=== PATIENT | female | born 1980 | race Caucasian/White ===

== ENCOUNTER 2016-11-23 08:17 | Observation (INO) | payer MEDICARE ==
[2016-11-23] MEDS ORDERED: PROMETHAZINE HCL 25 MG/ML VIAL IV ONE (09:15)
[2016-11-23] MEDS ORDERED: 0.9 % SODIUM CHLORIDE 1,000 ML BAG IV ONE (09:15)
[2016-11-23 09:39] LABS: BASO % 0.1 % (0-6); HEMATOCRIT 38.6 % (35.0-47.0); HEMOGLOBIN 12.6 gm/dl (11.6-16.0); LYMPH % 14.4 % (16-45); MEAN CELL VOLUME 89.6 fl (81-97); MEAN CORPUSCULAR HEMOGLOBIN 29.2 pg (27-33); MEAN CORPUSCULAR HGB CONC 32.6 g/dl (32-36); MEAN PLATELET VOLUME 10.8 fl (7.4-10.4); MONO % 7.5 % (0-9); PLATELET COUNT 353 K/uL (130-400); RED BLOOD COUNT 4.31 M/uL (3.80-5.40); RED CELL DISTRIBUTION WIDTH 13.7 % (11.5-14.5); WHITE BLOOD COUNT W/O DIFF 14.7 K/uL (4.2-12.2)
[2016-11-23 09:51] LABS: ALB/GLOB RATIO 1.4 (1.1-1.8); ALKALINE PHOSPHATASE 105 U/L (38-126); ALT/SGPT 31 U/L (9-52); AMYLASE 41 U/L (30-110); ANION GAP 9.7 (7-16); AST/SGOT 15 U/L (14-36); BILIRUBIN,TOTAL 0.17 mg/dL (0.2-1.3); BLOOD UREA NITROGEN 9 mg/dL (7-17); CARBON DIOXIDE 24.3 mmol/L (22-30); CREATININE 0.8 mg/dL (0.52-1.04); EST GLOMERULAR FILTRATION RATE > 60 ml/min; GLUCOSE,RANDOM 151 mg/dL (70-110); LIPASE 65 U/L (23-300); TOTAL PROTEIN 6.8 gm/dL (6.3-8.2)
[2016-11-23] MEDS ORDERED: LORAZEPAM 2 MG/ML VIAL IV ONE (09:58)
[2016-11-23] MEDS ORDERED: PROMETHAZINE HCL 25 MG/ML VIAL IM ONE (10:15)
[2016-11-23 11:07] LABS: URINE APPEARANCE CLEAR; URINE BILIRUBIN NEGATIVE (NEGATIVE); URINE BLOOD NEGATIVE (NEGATIVE); URINE COLOR YELLOW; URINE KETONE NEGATIVE (NEGATIVE); URINE LEUKOCYTE ESTERASE NEGATIVE (NEGATIVE); URINE NITRITE NEGATIVE (NEGATIVE); URINE PROTEIN NEGATIVE (NEGATIVE); URINE UROBILINOGEN 0.2 E.U./dL (0.20 - 1.00)
[2016-11-23 11:09] LABS: HCG,QUALITATIVE URINE NEGATIVE (NEGATIVE)
--- NOTE | 2016-11-23 11:55 | Emergency Department Record ---
History of Present Illness - General Chief complaint: Vomiting Stated complaint: VOMITING Time Seen by Provider: 11/23/16 09:07 Source: Patient Mode of Arrival: Ambulatory Limitations: No limitations - History of Present Illness Initial comments: pt states she has been vomiting every 5 minutes since during the night. pt was at [facility] yesterday for a migraine and was at [facility] within the last 2 months. she has been diagnosed with cyclical vomiting. she has taken 12mg. of zofran in 8hrs. she is out of phenergan. pt also states she has been vomiting brown though her stomach has nothing in it. she is concerned that she might have blood in her stomach. MD complaint: Nausea, Vomiting Onset/Timin -: Hour(s) Description of Vomiting: Bilious Location: RUQ, RLQ, Diffuse Radiation: None Severity: Moderate Severity scale (1-10): 7 Quality: Cramping, Sharp Consistency: Constant Improves with: None Worsens with: Vomiting Context: Other Associated Symptoms: Loss of appetite, Nausea/vomiting - Related Data Home Medications Medication Instructions Recorded Confirmed Last Taken Duloxetine HCl [Cymbalta] 90 mg PO DAILY 07/22/14 11/23/16 10/13/16 Risperidone [Risperdal M-Tab] 2 mg PO QHS 07/13/16 11/23/16 10/12/16 Pantoprazole Sodium [Protonix] 40 mg PO BID tab.dr 09/07/16 11/23/16 10/13/16 Bupropion HCl [Wellbutrin Xl] 150 mg PO DAILY tab 11/04/16 11/23/16 Unknown Clorazepate Dipotassium [Tranxene 7.5 mg PO TID tab 11/04/16 11/23/16 Unknown T-Tab] Promethazine HCl [Phenergan] 25 mg PO Q6H tab 11/17/16 11/23/16 Unknown Amitriptyline HCl [Amitriptyline 10 mg PO DAILY 11/23/16 11/23/16 Unknown HCl] Allergies Allergy/AdvReac Type Severity Reaction Status Date / Time Iodinated Contrast Media - Allergy Intermediate ANAPHYLAXIS Verified 11/04/16 21 :44 Oral and ketorolac tromethamine Allergy Intermediate ALTERED Verified 11/04/16 21:44 [From Toradol] MENTAL STATUS lurasidone HCl [From Latuda] Allergy Intermediate RASH Verified 11/04/16 21:44 Penicillins Allergy Intermediate RASH Verified 11/04/16 21:44 shellfish derived Allergy Intermediate VOMITING Verified 11/04/16 21:44 tramadol HCl [From Ultram] Allergy Intermediate BEHAVIORAL Verified 11/04/16 21: 44 CHANGES ciprofloxacin [From Cipro] AdvReac Intermediate VOMITING Verified 11/04/16 21:44 ciprofloxacin HCl AdvReac Intermediate VOMITING Verified 11/04/16 21:44 [From Cipro] erythromycin base AdvReac Intermediate ABDOMINAL Verified 11/04/16 21:44 [Erythromycin Base] PAIN haloperidol [From Haldol] AdvReac restless, Verified 11/04/16 21:44 anxious haloperidol lactate AdvReac restless, Verified 11/04/16 21:44 [From Haldol] anxious metoclopramide HCl AdvReac VOMITING Verified 11/04/16 21:44 [From Reglan] sumatriptan [From Imitrex] AdvReac ANAPHYLAXIS Verified 11/04/16 21:44 sumatriptan succinate AdvReac ANAPHYLAXIS Verified 11/04/16 21:44 [From Imitrex] Travel Screening - Travel/Exposure Within Last 30 Days Have you traveled within the last 30 days?: No Review of Systems Reviewed: No additional complaints except as noted below Constitutional: Reports: As per HPI. Denies: Chills, Fever, Malaise, Night sweats, Weakness, Weight change Eyes: Reports: As per HPI. Denies: Eye discharge, Eye pain, Photophobia, Vision change ENT: Reports: As per HPI. Denies: Congestion, Dental pain, Ear pain, Epistaxis , Hearing loss, Throat pain Respiratory: Reports: As per HPI. Denies: Cough, Dyspnea, Hemoptysis, Stridor, Wheezes Cardiovascular: Reports: As per HPI. Denies: Arrhythmia, Chest pain, Dyspnea on exertion, Edema, Murmurs, Orthopnea, Palpitations, Paroxysmal nocturnal dyspnea, Rheumatic Fever, Syncope Endocrine: Reports: As per HPI. Denies: Fatigue, Heat or cold intolerance, Polydipsia, Polyuria Gastrointestinal: Reports: As per HPI. Denies: Abdominal pain, Constipation, Diarrhea, Hematemesis, Hematochezia, Melena, Nausea, Vomiting Genitourinary: Reports: As per HPI. Denies: Abnormal menses, Discharge, Dyspareunia, Dysuria, Frequency, Hematuria, Incontinence, Retention, Urgency Musculoskeletal: Reports: As per HPI. Denies: Arthralgia, Back pain, Gout, Joint swelling, Myalgia, Neck pain Skin: Reports: As per HPI. Denies: Bruising, Change in color, Change in hair/ nails, Lesions, Pruritus, Rash Neurological: Reports: As per HPI. Denies: Abnormal gait, Confusion, Headache, Numbness, Paresthesias, Seizure, Tingling, Tremors, Vertigo, Weakness Psychiatric: Reports: As per HPI. Denies: Anxiety, Auditory hallucinations, Depression, Homicidal thoughts, Suicidal thoughts, Visual hallucinations Hematological/Lymphatic: Reports: As per HPI. Denies: Anemia, Blood Clots, Easy bleeding, Easy bruising, Swollen glands Past Medical History - SOCIAL HISTORY Smoking Status: Current every day smoker Alcohol Use: None Drug Use: None - RESPIRATORY Hx Respiratory Disorders: Yes Hx Bronchitis: Yes Hx Pneumonia: Yes - CARDIOVASCULAR Hx Cardio Disorders: Yes Hx Abnormal EKG: Yes (atrial tachy) - NEURO Hx Neuro Disorders: Yes Hx Headaches: Yes Hx Seizures: Yes (last one 2012) - GI Hx GI Disorders: Yes Hx Abdominal Pain: Yes Hx Hiatal Hernia: Yes Hx Nausea/Vomiting: Yes Hx Wt Loss/Wt Gain: Yes (25 lb over 2 wks 2015) - Hx Genitourinary Disorders: Yes Hx Kidney Stones: Yes Hx UTI: Yes - ENDOCRINE Hx Endocrine Disorders: No Hx Diabetes: No Hx Thyroid Disease: No - MUSCULOSKELETAL Hx Musculoskeletal Disorders: Yes Comment:: osteoarthritis; ankylosing spondylitis - PSYCH Hx Psych Problems: Yes Hx Anxiety: Yes Hx Depression: Yes Comment:: ECT therapy - HEMATOLOGY/ONCOLOGY Hx Hematology/Oncology Disorders: No Family Medical History Any Significant Family History?: Yes Family Hx Comment (NOT TO BE USED IN PLACE OF ITEMS BELOW): Parkinson's- grandparent , Mental illness with father, Hx Cancer: Grandparents Hx Diabetes: Grandparents Hx Heart Disease: Grandparents Physical Exam - General General Appearance: Alert, Oriented x3, Cooperative, Mild distress - Head Head exam: Normal inspection - Eye Eye exam: Normal appearance, PERRL, EOMI Pupils: Normal accommodation - ENT ENT exam: Normal exam, Mucous membranes moist, Normal external ear exam, Normal orophraynx, TM's normal bilaterally Ear exam: Normal external inspection. negative: External canal tenderness Nasal Exam: Normal inspection. negative: Discharge, Sinus tenderness Mouth exam: Normal external inspection, Tongue normal Teeth exam: Normal inspection. negative: Dental caries Throat exam: Normal inspection. negative: Tonsillar erythema, Tonsillar exudate - Neck Neck exam: Normal inspection, Full ROM. negative: Tenderness - Respiratory Respiratory exam: Normal lung sounds bilaterally. negative: Respiratory distress - Cardiovascular Cardiovascular Exam: Regular rate, Normal rhythm, Normal heart sounds - GI/Abdominal GI/Abdominal exam: Soft, Normal bowel sounds. negative: Tenderness - Rectal Rectal exam: Deferred - exam: Deferred - Extremities Extremities exam: Normal inspection, Full ROM, Normal capillary refill. negative: Tenderness - Back Back exam: Reports: Normal inspection, Full ROM. Denies: Muscle spasm, Rash noted, Tenderness - Neurological Neurological exam: Alert, CN II-XII intact, Normal gait, Oriented X3 - Psychiatric Psychiatric exam: Normal affect, Normal mood - Skin Skin exam: Dry, Intact, Normal color, Warm Course Vital Signs 11/23/16 08:22 Temperature 98.1 F Pulse Rate 104 H Respiratory 18 Rate Blood Pressure 125/77 Pulse Ox 98 - Reevaluation(s) Reevaluation #1: 11/23/16 11:58 ng tube was d/w pt. she asked for it to be done. she then refused during process. she then asked for it to be done again and then as nurse was attempting the 2nd time she refused again. pt states she cant go home as she will be back here again vomiting. Medical Decision Making - Lab Data Result diagrams: 11/23/16 08:40 11/23/16 08:40 Lab Results 11/23/16 11/23/16 11/23/16 Range/Units 08:40 08:40 11:00 WBC 14.7 H (4.2-12.2) K/uL RBC 4.31 (3.80-5.40) M/uL Hgb 12.6 (11.6-16.0) gm/dl Hct 38.6 (35.0-47.0) % MCV 89.6 (81-97) fl MCH 29.2 (27-33) pg MCHC 32.6 (32-36) g/dl RDW 13.7 (11.5-14.5) % Plt Count 353 (130-400) K/uL MPV 10.8 H (7.4-10.4) fl Gran % 78.0 (47-80) % Lymphocytes % 14.4 L (16-45) % Monocytes % 7.5 (0-9) % Eosinophils % 0.0 (0-6) % Basophils % 0.1 (0-6) % Sodium 141 (136-145) mmol/L Potassium 3.9 (3.5-5.1) mmol/L Chloride 107 (98-107) mmol/L Carbon Dioxide 24.3 (22-30) mmol/L Anion Gap 9.7 (7-16) BUN 9 (7-17) mg/dL Creatinine 0.8 (0.52-1.04) mg/dL Estimated GFR > 60 ml/min Random Glucose 151 H (70-110) mg/dL Calcium 9.0 (8.5-10.1) mg/dL Total Bilirubin 0.17 L (0.2-1.3) mg/dL AST 15 (14-36) U/L ALT 31 (9-52) U/L Alkaline Phosphatase 105 (38-126) U/L Total Protein 6.8 (6.3-8.2) gm/dL Albumin 4.0 (3.5-5.0) gm/dL Globulin 2.8 (1.4-4.8) gm/dL Albumin/Globulin Ratio 1.4 (1.1-1.8) Amylase 41 (30-110) U/L Lipase 65 (23-300) U/L Urine Color Yellow Urine Appearance Clear Urine pH 7.0 (5.0-8.0) Ur Specific [place] 1.020 (1.002-1.030) Urine Protein Negative (NEGATIVE) Urine Glucose (UA) 250 mg/dl H (NEGATIVE) Urine Ketones Negative (NEGATIVE) Urine Blood Negative (NEGATIVE) Urine Nitrite Negative (NEGATIVE) Urine Bilirubin Negative (NEGATIVE) Urine Urobilinogen 0.2 (0.20 - 1.00) E.U./dL Ur Leukocyte Esterase Negative (NEGATIVE) Urine HCG, Qual Negative (NEGATIVE) Disposition Disposition: Admit Clinical Impression: Nausea & vomiting Qualifiers: Vomiting type: cyclical vomiting Vomiting Intractability: intractable Qualified Code(s): G43.A1 - Cyclical vomiting, intractable Cyclical vomiting Qualifiers: Vomiting Intractability: intractable Nausea presence: with nausea Qualified Code(s): G43.A1 - Cyclical vomiting, intractable Disposition: Still a Patient at [facility] Decision to Admit: Admit from ER Decision to Admit Date: 11/23/16 Decision to Admit Time: 12:02 Forms: Patient Portal Access
[2016-11-23] MEDS ORDERED: PROMETHAZINE HCL 25 MG/ML VIAL IM PRN (12:37)
[2016-11-23] MEDS ORDERED: TEMAZEPAM 15 MG CAPSULE PO PRN (12:37)
[2016-11-23] MEDS ORDERED: DICYCLOMINE HCL 10 MG/ML AMPUL IM ONE (14:17)
[2016-11-23] MEDS: DULOXETINE HCL 30 MG CAPSULE.DR PO SCH (14:47)
[2016-11-23] MEDS: BUPROPION HCL 150 MG TAB.SR.12H PO SCH (14:48)
[2016-11-23] MEDS: AMITRIPTYLINE 10 MG TAB PO SCH ×2 (14:48→21:39)
[2016-11-23] MEDS: CLORAZEPATE DIPOTASSIUM 7.5 MG PO SCH ×3 (14:49→21:40)
[2016-11-23] MEDS: PANTOPRAZOLE SODIUM 40 MG TABLET PO SCH ×2 (14:50→21:40)
[2016-11-23] MEDS: NICOTINE 21 MG/24 HOUR PATCH TD SCH (15:01)
[2016-11-23] MEDS: ONDANSETRON HCL IV 4 MG/2 ML VIAL IVP PRN (17:19)
[2016-11-23] MEDS: 0.9 % SODIUM CHLORIDE 1000ML 1,000 ML IV PRN (18:02)
[2016-11-23] MEDS ORDERED: PROMETHAZINE HCL 25 MG SUPP RC ONE (18:52)
[2016-11-23] MEDS: HYDROMORPHONE HCL 1 MG/ML CPJ IVP PRN (20:17)
[2016-11-23] MEDS ORDERED: AMITRIPTYLINE 25 MG TABLET PO SCH (22:00)
[2016-11-23] MEDS ORDERED: RISPERIDONE 1 MG TABLET PO SCH (22:00)
[2016-11-23] MEDS ORDERED: DIPHENHYDRAMINE HCL 25 MG CAPSULE PO SCH (22:00)
[2016-11-24] MEDS: 0.9 % SODIUM CHLORIDE 1000ML 1,000 ML IV PRN ×3 (00:03→08:54)
[2016-11-24] MEDS: HYDROMORPHONE HCL 1 MG/ML CPJ IVP PRN ×4 (00:04→13:00)
[2016-11-24] MEDS: ONDANSETRON HCL IV 4 MG/2 ML VIAL IVP PRN ×2 (02:53→11:54)
--- NOTE | 2016-11-24 06:33 | History & Physical ---
History of Present Illness - Date of Service Date of Service for History & Physical: 11/24/16 - History of Present Illness Admitting Diagnosis: intractable nausea and vomiting History of Present Illness: 36yo female with CC of nausea and vomiting. She has a history of cyclical vomiting being followed by [facility], major depression being treated with ECT, anxiety, migraines, osteoarthritis. Patient has long history of recurrent, cyclical vomiting being followed by [facility]. She presented to the ED yesterday with nausea and frequent vomiting of brown emesis. She reports not being able to keep anything down including water so she decided to come to the ED after trying 12mg of zofran at home . While in the ED, patient refused to have NG tube placed twice. She had recently had CT abdomen at [facility] which was negative for acute changes. WBC count was slightly elevated, but she had received steroids in [facility] ED the day prior. Rest of her labs were unremarkable including AST/ALT, lipase, and TSH. Patient was given phenergan with mild improvement in nausea. She did not have any further episodes of emesis while in the ED but was admitted for intractable vomiting. 11/24/16- Patient states she continues to feel nauseous. She reports vomiting up her breakfast and has not been able to tolerate her water. She says the phenergan isn't working very well. She reports having compazine in the past and reporting that worked well. She has had her N/V worked up extensively with GI and no follows with the [facility]. PCP: Srinivas Travel Screening - Travel/Exposure Within Last 30 Days Have you traveled within the last 30 days?: No - Travel/Exposure Within Last Year Have you traveled outside the [place] in the last year?: No - Additonal Travel Details Have you been exposed to anyone with a communicable illness?: No - Travel Symptoms Symptom Screening: Headache, Weakness, Fatigue, Vomiting, Stomach Pain Review of Systems Constitutional: Denies: Chills, Fever, Malaise, Night sweats, Weakness, Weight change Eyes: Denies: Eye discharge, Eye pain, Photophobia, Vision change ENT: Denies: Congestion, Dental pain, Ear pain, Epistaxis, Hearing loss, Throat pain Respiratory: Denies: Cough, Dyspnea, Hemoptysis, Stridor, Wheezes Cardiovascular: Denies: Arrhythmia, Chest pain, Dyspnea on exertion, Edema, Murmurs, Orthopnea, Palpitations, Paroxysmal nocturnal dyspnea, Rheumatic Fever , Syncope Endocrine: Denies: Fatigue, Heat or cold intolerance, Polydipsia, Polyuria Gastrointestinal: Reports: Nausea, Vomiting. Denies: Abdominal pain, Constipation, Diarrhea, Hematemesis, Hematochezia, Melena Genitourinary: Denies: Abnormal menses, Discharge, Dyspareunia, Dysuria, Frequency, Hematuria, Incontinence, Retention, Urgency Musculoskeletal: Denies: Arthralgia, Back pain, Gout, Joint swelling, Myalgia, Neck pain Skin: Denies: Bruising, Change in color, Change in hair/nails, Lesions, Pruritus , Rash Neurological: Denies: Abnormal gait, Confusion, Headache, Numbness, Paresthesias , Seizure, Tingling, Tremors, Vertigo, Weakness Psychiatric: Reports: Anxiety, Depression. Denies: Auditory hallucinations, Homicidal thoughts, Suicidal thoughts, Visual hallucinations Hematological/Lymphatic: Denies: Anemia, Blood Clots, Easy bleeding, Easy bruising, Swollen glands Past Medical History - SOCIAL HISTORY Smoking Status: Current every day smoker - RESPIRATORY Hx Respiratory Disorders: Yes Hx Bronchitis: Yes Hx Pneumonia: Yes - CARDIOVASCULAR Hx Cardio Disorders: Yes Hx Abnormal EKG: Yes (atrial tachy) - NEURO Hx Neuro Disorders: Yes Hx Headaches: Yes Hx Seizures: Yes (last one 2012) - GI Hx GI Disorders: Yes Hx Abdominal Pain: Yes Hx Hiatal Hernia: Yes Hx Nausea/Vomiting: Yes Hx Wt Loss/Wt Gain: Yes (25 lb over 2 wks 2015) - Hx Genitourinary Disorders: Yes Hx Kidney Stones: Yes Hx UTI: Yes - ENDOCRINE Hx Endocrine Disorders: No Hx Diabetes: No Hx Thyroid Disease: No - MUSCULOSKELETAL Hx Musculoskeletal Disorders: Yes Comment:: osteoarthritis; ankylosing spondylitis - PSYCH Hx Psych Problems: Yes Hx Anxiety: Yes Hx Depression: Yes Comment:: ECT therapy - HEMATOLOGY/ONCOLOGY Hx Hematology/Oncology Disorders: No Family Medical History Any Significant Family History?: Yes Family Hx Comment (NOT TO BE USED IN PLACE OF ITEMS BELOW): Parkinson's- grandparent , Mental illness with father, Hx Cancer: Grandparents Hx Diabetes: Grandparents Hx Heart Disease: Grandparents H&P Meds/Allergies - Allergies Allergies: Allergies Allergy/AdvReac Type Severity Reaction Status Date / Time Iodinated Contrast Media - Allergy Intermediate ANAPHYLAXIS Verified 11/04/16 21 :44 Oral and ketorolac tromethamine Allergy Intermediate ALTERED Verified 11/04/16 21:44 [From Toradol] MENTAL STATUS lurasidone HCl [From Latuda] Allergy Intermediate RASH Verified 11/04/16 21:44 Penicillins Allergy Intermediate RASH Verified 11/04/16 21:44 shellfish derived Allergy Intermediate VOMITING Verified 11/04/16 21:44 tramadol HCl [From Ultram] Allergy Intermediate BEHAVIORAL Verified 11/04/16 21: 44 CHANGES ciprofloxacin [From Cipro] AdvReac Intermediate VOMITING Verified 11/04/16 21:44 ciprofloxacin HCl AdvReac Intermediate VOMITING Verified 11/04/16 21:44 [From Cipro] erythromycin base AdvReac Intermediate ABDOMINAL Verified 11/04/16 21:44 [Erythromycin Base] PAIN haloperidol [From Haldol] AdvReac restless, Verified 11/04/16 21:44 anxious haloperidol lactate AdvReac restless, Verified 11/04/16 21:44 [From Haldol] anxious metoclopramide HCl AdvReac VOMITING Verified 11/04/16 21:44 [From Reglan] sumatriptan [From Imitrex] AdvReac ANAPHYLAXIS Verified 11/04/16 21:44 sumatriptan succinate AdvReac ANAPHYLAXIS Verified 11/04/16 21:44 [From Imitrex] - Home Medications Home Medications Medication Instructions Recorded Confirmed Last Taken Duloxetine HCl [Cymbalta] 60 mg PO DAILY 07/22/14 11/23/16 10/13/16 Risperidone [Risperdal M-Tab] 2 mg PO QHS 07/13/16 11/23/16 10/12/16 Pantoprazole Sodium [Protonix] 40 mg PO BID tab. 09/07/16 11/23/16 10/13/16 Bupropion HCl [Wellbutrin Xl] 150 mg PO DAILY tab 11/04/16 11/23/16 Unknown Clorazepate Dipotassium [Tranxene 7.5 mg PO TID tab 11/04/16 11/23/16 Unknown T-Tab] Previous Rx's Medication Instructions Recorded Amitriptyline HCl [Elavil] 25 mg PO QHS #30 tablet 11/24/16 Prochlorperazine Maleate 10 mg PO Q6H PRN #120 tablet 11/24/16 [Compazine] Promethazine HCl [Phenergan] 25 mg RC Q6H PRN #30 supp.rect 11/24/16 - Active Medications Active Medications: Current Medications Amitriptyline HCl (Elavil) 10 mg PO DAILY [facility] Last Admin: 11/23/16 21:39 Dose: 10 mg Amitriptyline HCl (Elavil) 25 mg PO QHS [facility] Last Admin: 11/23/16 22:37 Dose: Not Given Bupropion HCl (Wellbutrin Sr) 150 mg PO DAILY [facility] Last Admin: 11/23/16 14:48 Dose: 150 mg Diphenhydramine HCl (Benadryl Capsule) 25 mg PO QHS [facility] Last Admin: 11/23/16 21:40 Dose: 25 mg Duloxetine HCl (Cymbalta) 60 mg PO DAILY [facility] Last Admin: 11/23/16 14:47 Dose: 60 mg Hydromorphone HCl (Dilaudid) 1 mg IVP Q4H PRN PRN Reason: Abdominal Pain Last Admin: 11/24/16 04:01 Dose: 1 mg Sodium Chloride () 1,000 mls @ 125 mls/hr IV .Q8H PRN PRN Reason: LARGE VOLUME IV Last Admin: 11/24/16 00:04 Dose: 125 mls/hr Nicotine (Nicotine 21mg) 1 patch TD DAILY [facility] Last Admin: 11/23/16 15:01 Dose: 1 patch Ondansetron HCl (Zofran) 4 mg IVP Q4H PRN PRN Reason: NAUSEA Last Admin: 11/24/16 02:53 Dose: 4 mg Pantoprazole Sodium (Protonix) 40 mg PO 0700,2200 [facility] Last Admin: 11/23/16 21:40 Dose: 40 mg Patient Own Med: Clorazepate Dipotassium 7.5 Mg 1 each PO TID [facility] Last Admin: 11/23/16 21:40 Dose: 1 each Promethazine HCl (Phenergan Iv) 12.5 mg IM Q6H PRN PRN Reason: NAUSEA/VOMITING Promethazine HCl (Phenergan Supp) 25 mg RC NOW ONE Stop: 11/23/16 18:53 Last Admin: 11/23/16 20:18 Dose: 25 mg Risperidone (Risperadol) 2 mg PO QHS [facility] Last Admin: 11/23/16 21:40 Dose: 2 mg Temazepam (Restoril) 15 mg PO QHS PRN PRN Reason: INSOMNIA Last Admin: 11/23/16 21:39 Dose: 15 mg Physical Exam - Vital Signs Vital Signs: Vital Signs - Last 24 Hrs Temp Pulse Resp BP Pulse Ox 11/24/16 04:03 98.6 F 92 H 18 122/71 96 11/23/16 21:03 98.8 F 103 H 16 116/59 96 11/23/16 20:31 88 18 11/23/16 12:37 98.4 F 94 H 18 109/78 97 11/23/16 12:34 98.4 F 94 H 18 109/78 97 - General General Appearance: Alert, Oriented x3, Cooperative, No acute distress Limitations: No limitations - Head Head exam: Normal inspection - Eye Eye exam: Normal appearance, PERRL, EOMI Pupils: Normal accommodation - ENT ENT exam: Normal exam, Mucous membranes moist, Normal external ear exam, Normal orophraynx, TM's normal bilaterally Ear exam: Normal external inspection. negative: External canal tenderness Nasal Exam: Normal inspection. negative: Discharge, Sinus tenderness Mouth exam: Normal external inspection, Tongue normal Teeth exam: Normal inspection. negative: Dental caries Throat exam: Normal inspection. negative: Tonsillar erythema, Tonsillar exudate - Neck Neck exam: Normal inspection, Full ROM. negative: Tenderness - Respiratory Respiratory exam: Normal lung sounds bilaterally. negative: Respiratory distress - Cardiovascular Cardiovascular Exam: Regular rate, Normal rhythm, Normal heart sounds - GI/Abdominal GI/Abdominal exam: Soft, Normal bowel sounds. negative: Distended, Guarding, Rebound, Rigid, Tenderness - Rectal Rectal exam: Deferred - exam: Deferred - Extremities Extremities exam: Normal inspection, Full ROM, Normal capillary refill. negative: Tenderness - Back Back exam: Reports: Normal inspection, Full ROM. Denies: Muscle spasm, Rash noted, Tenderness - Neurological Neurological exam: Alert, CN II-XII intact, Normal gait, Oriented X3 - Psychiatric Psychiatric exam: Flat affect, Normal mood - Skin Skin exam: Dry, Intact, Normal color, Warm Results - Labs Result Diagrams: 11/24/16 06:45 11/24/16 06:45 Labs Last 24 Hours: Laboratory Results - last 24 hr 11/24/16 06:00 Sodium Cancelled Potassium Cancelled Chloride Cancelled Carbon Dioxide Cancelled Anion Gap Cancelled BUN Cancelled Creatinine Cancelled Estimated GFR Cancelled Random Glucose Cancelled Calcium Cancelled VTE H&P Assessment - Risk for VTE Risk for VTE: No Risk Level: Very Low Risk Assessment Date: 11/24/16 Risk Assessment Time: 20:33 VTE Orders Placed or Will Be Placed: No VTE Reason for No Prophylaxis: Not Indicated Plan - Detailed Diagnosis and Plan (1) Nausea & vomiting Status: Acute Qualifiers: Vomiting type: cyclical vomiting Vomiting Intractability: intractable Qualified Code(s): G43.A1 - Cyclical vomiting, intractable Base Code: R11.2 - NAUSEA WITH VOMITING, UNSPECIFIED Comment: 11/24/16- Patient reprots continued emesis with solid foods. She has had this worked up extensively with GI and now the [facility]. Zofran seems moderately effective but phenergan is not helping. WBc WNL range, patient is afebrile and no electrolyte abnormalities or evidence of dehydration. -will do trial of adding compazine 10mg pO -will continue clear liquids and advance as tolerating. (2) Full code status Status: Acute Base Code: Z78.9 - OTHER SPECIFIED HEALTH STATUS Comment: 11/24/16- patient is full code (3) DVT prophylaxis Status: Acute Base Code: [id number] - Comment: 11/24/16- patient is very low risk for VTE. -will encourage frequent ambulation
[2016-11-24] MEDS: PANTOPRAZOLE SODIUM 40 MG TABLET PO SCH (06:51)
[2016-11-24 07:11] LABS: BASO % 0.4 % (0-6); EOS % 1.6 % (0-6); GRAN % 46.4 % (47-80); HEMATOCRIT 36.8 % (35.0-47.0); HEMOGLOBIN 11.7 gm/dl (11.6-16.0); LYMPH % 46.4 % (16-45); MEAN CELL VOLUME 91.1 fl (81-97); MEAN CORPUSCULAR HGB CONC 31.8 g/dl (32-36); MEAN PLATELET VOLUME 10.2 fl (7.4-10.4); MONO % 5.2 % (0-9); PLATELET COUNT 294 K/uL (130-400); RED BLOOD COUNT 4.04 M/uL (3.80-5.40); RED CELL DISTRIBUTION WIDTH 13.8 % (11.5-14.5); WHITE BLOOD COUNT W/O DIFF 10.9 K/uL (4.2-12.2)
[2016-11-24 07:26] LABS: ALB/GLOB RATIO 1.5 (1.1-1.8); ALBUMIN 3.5 gm/dL (3.5-5.0); ALKALINE PHOSPHATASE 83 U/L (38-126); ALT/SGPT 35 U/L (9-52); ANION GAP 7.4 (7-16); AST/SGOT 19 U/L (14-36); BILIRUBIN,TOTAL 0.22 mg/dL (0.2-1.3); BLOOD UREA NITROGEN 8 mg/dL (7-17); CARBON DIOXIDE 23.6 mmol/L (22-30); CREATININE 0.9 mg/dL (0.52-1.04); EST GLOMERULAR FILTRATION RATE > 60 ml/min; GLUCOSE,RANDOM 99 mg/dL (70-110); TOTAL PROTEIN 5.9 gm/dL (6.3-8.2)
[2016-11-24 07:29] LABS: C-REACTIVE PROTEIN < 0.5 mg/dL (0.0-0.9)
[2016-11-24] MEDS: BUPROPION HCL 150 MG TAB.SR.12H PO SCH ×2 (08:49→13:57)
[2016-11-24] MEDS: CLORAZEPATE DIPOTASSIUM 7.5 MG PO SCH ×2 (08:50→13:56)
[2016-11-24] MEDS: DULOXETINE HCL 30 MG CAPSULE.DR PO SCH ×2 (08:52→13:55)
[2016-11-24] MEDS ORDERED: PROCHLORPERAZINE MALEATE 10 MG TABLET PO ONE (13:00)
[2016-11-24] MEDS: NICOTINE 21 MG/24 HOUR PATCH TD SCH (13:57)
[2016-11-24] MEDS: AMITRIPTYLINE 10 MG TAB PO SCH (14:02)
--- NOTE | 2016-11-24 14:39 | Discharge Summary ---
Providers Discharge Summary Date: 11/24/16 Date of admission: 11/23/16 12:17 Expected Date of Discharge: 11/24/16 Attending physician: ROX ROSARIO Primary care physician: ROX ROSARIO Physical Exam - Vital Signs Vital Signs: Vital Signs - Last 24 Hrs Temp Pulse Resp BP BP Pulse Ox 11/24/16 11:01 99.1 F 98/65 11/24/16 10:28 99.1 F 86 18 98/65 97 11/24/16 09:00 18 11/24/16 04:03 98.6 F 92 H 18 122/71 96 11/23/16 21:03 98.8 F 103 H 16 116/59 96 11/23/16 20:31 88 18 - General General Appearance: Alert, Oriented x3, Cooperative, No acute distress Limitations: No limitations - Head Head exam: Normal inspection - Eye Eye exam: Normal appearance, PERRL, EOMI Pupils: Normal accommodation - ENT ENT exam: Normal exam, Mucous membranes moist, Normal external ear exam, Normal orophraynx, TM's normal bilaterally Ear exam: Normal external inspection. negative: External canal tenderness Nasal Exam: Normal inspection. negative: Discharge, Sinus tenderness Mouth exam: Normal external inspection, Tongue normal Teeth exam: Normal inspection. negative: Dental caries Throat exam: Normal inspection. negative: Tonsillar erythema, Tonsillar exudate - Neck Neck exam: Normal inspection, Full ROM. negative: Tenderness - Respiratory Respiratory exam: Normal lung sounds bilaterally. negative: Respiratory distress - Cardiovascular Cardiovascular Exam: Regular rate, Normal rhythm, Normal heart sounds - GI/Abdominal GI/Abdominal exam: Soft, Normal bowel sounds. negative: Tenderness - Rectal Rectal exam: Deferred - exam: Deferred - Extremities Extremities exam: Normal inspection, Full ROM, Normal capillary refill. negative: Tenderness - Back Back exam: Reports: Normal inspection, Full ROM. Denies: Muscle spasm, Rash noted, Tenderness - Neurological Neurological exam: Alert, CN II-XII intact, Normal gait, Oriented X3 - Psychiatric Psychiatric exam: Normal affect, Normal mood - Skin Skin exam: Dry, Intact, Normal color, Warm Hospitalization - Hospitalization Admission Diagnosis: intractable nausea and vomiting - Problem List/Discharge Diagnosis (1) Nausea & vomiting Status: Acute Discharge Diagnosis: Vomiting type: cyclical vomiting Vomiting Intractability: intractable Qualified Code(s): G43.A1 - Cyclical vomiting, intractable Base Code: R11.2 - NAUSEA WITH VOMITING, UNSPECIFIED Comment: 11/24/16- Patient states compazine prior to lunch seemed to help. she was able to eat all of her clear liquid diet and keep it down. Says her nausea has resolved as well. She has had this worked up extensively with GI and now the [facility]. WBc WNL range, patient is afebrile and no electrolyte abnormalities or evidence of dehydration. -will plan to discharge home with follow up with PCP in one week -will send script for compazine 10mg PO Q6H prn severe N/V -Patient to return to ED at any time if she is unable to tolerate fluids by mouth or new symptoms develop. She voiced her understanding (2) Full code status Status: Acute Base Code: Z78.9 - OTHER SPECIFIED HEALTH STATUS Comment: 11/24/16- patient is full code (3) DVT prophylaxis Status: Acute Base Code: [id number] - Comment: 11/24/16- patient is very low risk for VTE. -will encourage frequent ambulation - Hospitalization Course Disposition: Home, Self-Care Hospital Course: 36yo female with CC of nausea and vomiting. She has a history of cyclical vomiting being followed by [facility], major depression being treated with ECT, anxiety, migraines, osteoarthritis. Patient has long history of recurrent, cyclical vomiting being followed by [facility]. She presented to the ED yesterday with nausea and frequent vomiting of brown emesis. She reports not being able to keep anything down including water so she decided to come to the ED after trying 12mg of zofran at home . While in the ED, patient refused to have NG tube placed twice. She had recently had CT abdomen at [facility] which was negative for acute changes. WBC count was slightly elevated, but she had received steroids in [facility] ED the day prior. Rest of her labs were unremarkable including AST/ALT, lipase, and TSH. Patient was given phenergan with mild improvement in nausea. She did not have any further episodes of emesis while in the ED but was admitted for intractable vomiting. 11/24/16- Patient states she continues to feel nauseous. She reports vomiting up her breakfast and has not been able to tolerate her water. She says the phenergan isn't working very well. She reports having compazine in the past and reporting that worked well. She has had her N/V worked up extensively with GI and no follows with the [facility]. PCP: Srinivas Abnormal Labs: Abnormal Lab Results 11/24/16 11/24/16 Range/Units 06:45 06:45 MCHC 31.8 L (32-36) g/dl Gran % 46.4 L (47-80) % Lymphocytes % 46.4 H (16-45) % Calcium 8.3 L (8.5-10.1) mg/dL Total Protein 5.9 L (6.3-8.2) gm/dL Condition at Discharge: (2) Stable Discharge Medications - Discharge Medications Prescriptions: Amitriptyline HCl [Elavil] 25 mg PO QHS #30 tablet Prochlorperazine Maleate [Compazine] 10 mg PO Q6H PRN #120 tablet PRN Reason: Nausea/Vomiting Promethazine HCl [Phenergan] 25 mg RC Q6H PRN #30 supp.rect PRN Reason: Nausea/Vomiting Home Medications: Ambulatory Orders Duloxetine HCl [Cymbalta] 60 mg PO DAILY 07/22/14 [Last Taken 10/13/16] Risperidone [Risperdal M-Tab] 2 mg PO QHS 07/13/16 [Last Taken 10/12/16] Pantoprazole Sodium [Protonix] 40 mg PO BID tab.dr 09/07/16 [Last Taken ] Bupropion HCl [Wellbutrin Xl] 150 mg PO DAILY tab 11/04/16 [Last Taken Unknown] Clorazepate Dipotassium [Tranxene T-Tab] 7.5 mg PO TID tab 11/04/16 [Last Taken Unknown] Amitriptyline HCl [Elavil] 25 mg PO QHS #30 tablet 11/24/16 [Last Taken Unknown] Prochlorperazine Maleate [Compazine] 10 mg PO Q6H PRN #120 tablet 11/24/16 [ Last Taken Unknown] Promethazine HCl [Phenergan] 25 mg RC Q6H PRN #30 supp.rect 11/24/16 [Last Taken Unknown] Discharge Plan - Discharge Instructions Activity at Discharge: Resume Usual Activities As Tolerated Diet at Discharge: Advance to Usual Diet Additional Instructions: May use either the zofran, compazine or phenergan for nausea/vomiting as needed but they are not to be taken together. Follow up with Dr. Newby in 1 week
== END 2016-11-24 15:25 | disposition home or self-care (01) ==
LOC: ER 08:17 → MEDSURG 12:17
PROVIDERS: ADMIT Family Medicine; ATTEND Family Medicine
DX: G43.A1 Cyclical vomiting, in migraine, intractable (principal); Z78.9 Other specified health status
CPT/HCPCS: 99285 ×2; 96376; 96374; 96375; 96361; 82150; 83690; 85025 ×2; 86140; 80053 ×2; 81003; 81025; G0378 ×2; J2405 ×2; J3490 ×2; J2060; J1170 ×2; 99220; J2550; J7030

== ENCOUNTER 2017-01-21 13:53 | Emergency (ER) | payer MEDICARE ==
--- NOTE | 2017-01-21 14:10 | Emergency Department Record ---
History of Present Illness - General Chief Complaint: Abdominal Pain Stated Complaint: UPPER ABD PAIN Time Seen by Provider: 01/21/17 14:09 Source: Patient Mode of Arrival: Ambulatory Limitations: No limitations - History of Present Illness Initial Comments: The patient is here due to upper abdominal pain for one day. The patient recently 2 days ago had an ERCP done at [facility] and possibly had gallstones removed from her CBD. She was well for one day and then yesterday developed vomiting and upper abdominal pain. She is concerned that she could have pancreatitis. MD Complaint: Abdominal pain Onset/Timin -: Days(s) Location: Diffuse Radiation: None Migration to: No migration Severity: Moderate Quality: Sharp Consistency: Constant Improves With: Nothing Worsens With: Nothing Associated Symptoms: Nausea, Vomiting - Related Data Patient : No Home Medications Medication Instructions Recorded Confirmed Last Taken Duloxetine HCl [Cymbalta] 60 mg PO DAILY 07/22/14 01/21/17 10/13/16 Risperidone [Risperdal M-Tab] 2 mg PO QHS 07/13/16 01/21/17 10/12/16 Pantoprazole Sodium [Protonix] 40 mg PO BID tab.dr 09/07/16 01/21/17 10/13/16 Bupropion HCl [Wellbutrin Xl] 150 mg PO DAILY tab 11/04/16 01/21/17 Unknown Clorazepate Dipotassium [Tranxene 7.5 mg PO TID tab 11/04/16 01/21/17 Unknown T-Tab] Acetaminophen with Codeine 1 tab PO DAILY 01/21/17 01/21/17 Unknown [Acetaminophen-Cod #3 Tablet] Previous Rx's Medication Instructions Recorded Amitriptyline HCl [Elavil] 25 mg PO QHS #30 tablet 11/24/16 Prochlorperazine Maleate 10 mg PO Q6H PRN #120 tablet 11/24/16 [Compazine] Promethazine HCl [Phenergan] 25 mg RC Q6H PRN #30 supp.rect 11/24/16 Allergies Allergy/AdvReac Type Severity Reaction Status Date / Time Iodinated Contrast Media - Allergy Intermediate ANAPHYLAXIS Unverified 01/07/17 09:59 Oral and ketorolac tromethamine Allergy Intermediate ALTERED Unverified 01/07/17 09:59 [From Toradol] MENTAL STATUS lurasidone HCl [From Latuda] Allergy Intermediate RASH Unverified 01/07/17 09:59 Penicillins Allergy Intermediate RASH Unverified 01/07/17 09:59 shellfish derived Allergy Intermediate VOMITING Unverified 01/07/17 09:59 tramadol HCl [From Ultram] Allergy Intermediate BEHAVIORAL Unverified 01/07/17 09:59 CHANGES ciprofloxacin [From Cipro] AdvReac Intermediate VOMITING Unverified 01/07/17 09: 59 ciprofloxacin HCl AdvReac Intermediate VOMITING Unverified 01/07/17 09:59 [From Cipro] erythromycin base AdvReac Intermediate ABDOMINAL Unverified 01/07/17 09:59 [Erythromycin Base] PAIN haloperidol [From Haldol] AdvReac restless, Unverified 01/07/17 09:59 anxious haloperidol lactate AdvReac restless, Unverified 01/07/17 09:59 [From Haldol] anxious metoclopramide HCl AdvReac VOMITING Unverified 01/07/17 09:59 [From Reglan] sumatriptan [From Imitrex] AdvReac ANAPHYLAXIS Unverified 01/07/17 09:59 sumatriptan succinate AdvReac ANAPHYLAXIS Unverified 01/07/17 09:59 [From Imitrex] Travel Screening - Travel/Exposure Within Last 30 Days Have you traveled within the last 30 days?: No Review of Systems Constitutional: Denies: Chills, Fever Eyes: Denies: Eye discharge ENT: Denies: Congestion Respiratory: Denies: Cough, Dyspnea Cardiovascular: Denies: Chest pain Endocrine: Denies: Fatigue Gastrointestinal: Reports: Abdominal pain Genitourinary: Denies: Dysuria Musculoskeletal: Denies: Back pain Skin: Denies: Bruising Past Medical History - SOCIAL HISTORY Smoking Status: Current every day smoker Alcohol Use: None Drug Use: None - RESPIRATORY Hx Respiratory Disorders: Yes Hx Bronchitis: Yes Hx Pneumonia: Yes - CARDIOVASCULAR Hx Cardio Disorders: Yes Hx Abnormal EKG: Yes (atrial tachy) - NEURO Hx Neuro Disorders: Yes Hx Headaches: Yes Hx Seizures: Yes (last one 2012) - GI Hx GI Disorders: Yes Hx Abdominal Pain: Yes Hx Hiatal Hernia: Yes Hx Nausea/Vomiting: Yes Hx Wt Loss/Wt Gain: Yes (25 lb over 2 wks 2015) - Hx Genitourinary Disorders: Yes Hx Kidney Stones: Yes Hx UTI: Yes - ENDOCRINE Hx Endocrine Disorders: No Hx Diabetes: No Hx Thyroid Disease: No - MUSCULOSKELETAL Hx Musculoskeletal Disorders: Yes Comment:: osteoarthritis; ankylosing spondylitis - PSYCH Hx Psych Problems: Yes Hx Anxiety: Yes Hx Depression: Yes Comment:: ECT therapy - HEMATOLOGY/ONCOLOGY Hx Hematology/Oncology Disorders: No Family Medical History Any Significant Family History?: Yes Family Hx Comment (NOT TO BE USED IN PLACE OF ITEMS BELOW): Parkinson's- grandparent , Mental illness with father, Hx Cancer: Grandparents Hx Diabetes: Grandparents Hx Heart Disease: Grandparents Physical Exam - General General Appearance: Alert, Oriented x3, Cooperative, No acute distress - Head Head exam: Atraumatic, Normocephalic, Normal inspection - Eye Eye exam: Normal appearance, PERRL - Neck Neck exam: Normal inspection, Full ROM. negative: Tenderness - Respiratory Respiratory exam: Normal lung sounds bilaterally. negative: Respiratory distress - Cardiovascular Cardiovascular Exam: Regular rate, Normal rhythm, Normal heart sounds - GI/Abdominal GI/Abdominal exam: Tenderness (There is diffuse abdominal tenderness R > L.). negative: Soft, Guarding, Rebound, Rigid - Extremities Extremities exam: Normal inspection, Full ROM, Normal capillary refill. negative: Tenderness - Back Back exam: Reports: Normal inspection - Neurological Neurological exam: Alert, Normal gait. negative: Abnormal gait, Motor sensory deficit - Psychiatric Psychiatric exam: Flat affect Course Vital Signs 01/21/17 13:59 Temperature 98.7 F Pulse Rate 116 H Respiratory 14 Rate Blood Pressure 137/92 Pulse Ox 96 - Reevaluation(s) Reevaluation #1: The patient is doing much better at this time. Her pain is much improved. 01/21/17 15:13 Reevaluation #2: The patient is doing much better at this time. Her nausea and pain have resolved. I did review her lab tests from 2 days ago and the results today are much improved from that visit. The patient feels well and has no abdominal tenderness and would like to go home. On exam her abdomen is very soft and nontender in all 4 quads. 01/21/17 15:56 Reevaluation #3: The patient's liver enzymes and bilirubin are much improved from 2 days ago. 01/21/17 16:04 Medical Decision Making - Data Complexity MDM Data: Labs Ordered and/or Reviewed - Lab Data Result diagrams: 01/21/17 14:30 01/21/17 14:30 Disposition Disposition: Discharge Clinical Impression: Cyclical vomiting Qualifiers: Vomiting Intractability: intractable Nausea presence: with nausea Qualified Code(s): G43.A1 - Cyclical vomiting, intractable Disposition: Home, Self-Care Condition: (1) Good Instructions: Abdominal Pain (ED) Additional Instructions: Please continue your home anti-emetic medicines. Please see your PCP next week if needed and return to the ER if worse. Forms: Patient Portal Access Time of Disposition: 15:58
[2017-01-21] MEDS ORDERED: ONDANSETRON HCL IV 4 MG/2 ML VIAL IV ONE (14:16)
[2017-01-21] MEDS ORDERED: HYDROMORPHONE HCL 1 MG/ML CPJ IVP ONE (14:16)
[2017-01-21] MEDS ORDERED: 0.9 % SODIUM CHLORIDE 1,000 ML BAG IV ONE (14:16)
[2017-01-21 14:43] LABS: BASO % 0.8 % (0-6); EOS % 4.6 % (0-6); GRAN % 46.6 % (47-80); HEMATOCRIT 39.6 % (35.0-47.0); HEMOGLOBIN 13.2 gm/dl (11.6-16.0); LYMPH % 40.3 % (16-45); MEAN CELL VOLUME 86.8 fl (81-97); MEAN CORPUSCULAR HEMOGLOBIN 28.9 pg (27-33); MEAN CORPUSCULAR HGB CONC 33.3 g/dl (32-36); MEAN PLATELET VOLUME 9.8 fl (7.4-10.4); MONO % 7.7 % (0-9); PLATELET COUNT 364 K/uL (130-400); RED BLOOD COUNT 4.56 M/uL (3.80-5.40); RED CELL DISTRIBUTION WIDTH 14.5 % (11.5-14.5); WHITE BLOOD COUNT W/O DIFF 6.1 K/uL (4.2-12.2)
[2017-01-21] MEDS ORDERED: DIPHENHYDRAMINE HCL IV 50 MG/ML VIAL IVP ONE (14:47)
[2017-01-21 14:56] LABS: ALKALINE PHOSPHATASE 236 U/L (38-126); ALT/SGPT 192 U/L (9-52); ANION GAP 13.5 (7-16); AST/SGOT 41 U/L (14-36); BILIRUBIN,TOTAL 2.02 mg/dL (0.2-1.3); BLOOD UREA NITROGEN 7 mg/dL (7-17); CARBON DIOXIDE 23.5 mmol/L (22-30); CREATININE 0.9 mg/dL (0.52-1.04); EST GLOMERULAR FILTRATION RATE > 60 ml/min; GLUCOSE,RANDOM 110 mg/dL (70-110); LIPASE 60 U/L (23-300); TOTAL PROTEIN 7.3 gm/dL (6.3-8.2)
[2017-01-21 15:00] LABS: AMYLASE < 30 U/L (30-110)
== END 2017-01-21 16:31 | disposition home or self-care (01) ==
LOC: ER 13:53
DX: G43.A1 Cyclical vomiting, in migraine, intractable (principal); R10.11 Right upper quadrant pain
CPT/HCPCS: 99284 ×2; 96374; 96375; 82150; 83690; 85025; 80076; 80048; 84703; J2405; J1170; J1200; J7030

== ENCOUNTER 2017-02-08 19:54 | Emergency (ER) | payer MEDICARE ==
[2017-02-08 21:06] LABS: BASO % 0.6 % (0-6); EOS % 4.2 % (0-6); GRAN % 49.8 % (47-80); HEMATOCRIT 39.9 % (35.0-47.0); HEMOGLOBIN 13.5 gm/dl (11.6-16.0); LYMPH % 39.5 % (16-45); MEAN CELL VOLUME 87.5 fl (81-97); MEAN CORPUSCULAR HEMOGLOBIN 29.6 pg (27-33); MEAN CORPUSCULAR HGB CONC 33.8 g/dl (32-36); MEAN PLATELET VOLUME 10.2 fl (7.4-10.4); MONO % 5.9 % (0-9); PLATELET COUNT 383 K/uL (130-400); RED BLOOD COUNT 4.56 M/uL (3.80-5.40); RED CELL DISTRIBUTION WIDTH 13.6 % (11.5-14.5); WHITE BLOOD COUNT W/O DIFF 8.8 K/uL (4.2-12.2)
[2017-02-08 21:17] LABS: ALB/GLOB RATIO 1.3 (1.1-1.8); ALKALINE PHOSPHATASE 154 U/L (38-126); ALT/SGPT 49 U/L (9-52); ANION GAP 7.2 (7-16); AST/SGOT 30 U/L (14-36); BLOOD UREA NITROGEN 13 mg/dL (7-17); CARBON DIOXIDE 25.8 mmol/L (22-30); EST GLOMERULAR FILTRATION RATE > 60 ml/min; GLUCOSE,RANDOM 110 mg/dL (70-110); TOTAL PROTEIN 7.1 gm/dL (6.3-8.2)
[2017-02-08 21:29] LABS: CKMB 0.2 ug/L (0-6); TROPONIN I < 0.012 ng/mL (0.00-0.034)
--- NOTE | 2017-02-08 22:27 | Emergency Department Record ---
History of Present Illness - General Chief Complaint: Chest Pain Stated Complaint: CHEST PAIN Time Seen by Provider: 02/08/17 20:26 Source: Patient Mode of Arrival: Ambulatory Limitations: No limitations - History of Present Illness Initial Comments: pt is having chest pain that is sharp and increases with inspiration. she smokes and had an ercp a month ago for stones lodged in her bile duct. she also had a recent trip. she feels sob MD Complaint: Chest pain Onset/Timin -: Hour(s) Onset: During rest Pain Location: Substernal, Left chest Pain Radiation: None Severity scale (1-10): 7 Quality: Heaviness, Sharp Consistency: Intermittent Improves With: Nothing Worsens With: Inspiration Context: Recent immobilization, Recent surgery, Recent travel Treatments Prior to Arrival: None - Related Data Home Medications Medication Instructions Recorded Confirmed Last Taken Duloxetine HCl [Cymbalta] 60 mg PO DAILY 07/22/14 02/08/17 10/13/16 Risperidone [Risperdal M-Tab] 2 mg PO QAM 07/13/16 02/08/17 10/12/16 Pantoprazole Sodium [Protonix] 40 mg PO BID tab.dr 09/07/16 02/08/17 10/13/16 Bupropion HCl [Wellbutrin Xl] 150 mg PO DAILY tab 11/04/16 02/08/17 Unknown Clorazepate Dipotassium [Tranxene 7.5 mg PO TID tab 11/04/16 02/08/17 Unknown T-Tab] Previous Rx's Medication Instructions Recorded Prochlorperazine Maleate 10 mg PO Q6H PRN #120 tablet 11/24/16 [Compazine] Promethazine HCl [Phenergan] 25 mg RC Q6H PRN #30 supp.rect 11/24/16 Allergies Allergy/AdvReac Type Severity Reaction Status Date / Time Iodinated Contrast Media - Allergy Intermediate ANAPHYLAXIS Verified 02/08/17 21 :03 Oral and ketorolac tromethamine Allergy Intermediate ALTERED Verified 02/08/17 21:03 [From Toradol] MENTAL STATUS lurasidone HCl [From Latuda] Allergy Intermediate RASH Verified 02/08/17 21:03 Penicillins Allergy Intermediate RASH Verified 02/08/17 21:03 shellfish derived Allergy Intermediate VOMITING Verified 02/08/17 21:03 tramadol HCl [From Ultram] Allergy Intermediate BEHAVIORAL Verified 02/08/17 21: 03 CHANGES ciprofloxacin [From Cipro] AdvReac Intermediate VOMITING Verified 02/08/17 21:03 ciprofloxacin HCl AdvReac Intermediate VOMITING Verified 02/08/17 21:03 [From Cipro] erythromycin base AdvReac Intermediate ABDOMINAL Verified 02/08/17 21:03 [Erythromycin Base] PAIN haloperidol [From Haldol] AdvReac restless, Verified 02/08/17 21:03 anxious haloperidol lactate AdvReac restless, Verified 02/08/17 21:03 [From Haldol] anxious metoclopramide HCl AdvReac VOMITING Verified 02/08/17 21:03 [From Reglan] sumatriptan [From Imitrex] AdvReac ANAPHYLAXIS Verified 02/08/17 21:03 sumatriptan succinate AdvReac ANAPHYLAXIS Verified 02/08/17 21:03 [From Imitrex] Travel Screening - Travel/Exposure Within Last 30 Days Have you traveled within the last 30 days?: No - Travel Symptoms Symptom Screening: None Review of Systems Reviewed: No additional complaints except as noted below Constitutional: Reports: As per HPI. Denies: Chills, Fever, Malaise, Night sweats, Weakness, Weight change Eyes: Reports: As per HPI. Denies: Eye discharge, Eye pain, Photophobia, Vision change ENT: Reports: As per HPI. Denies: Congestion, Dental pain, Ear pain, Epistaxis , Hearing loss, Throat pain Respiratory: Reports: As per HPI. Denies: Cough, Dyspnea, Hemoptysis, Stridor, Wheezes Cardiovascular: Reports: As per HPI. Denies: Arrhythmia, Chest pain, Dyspnea on exertion, Edema, Murmurs, Orthopnea, Palpitations, Paroxysmal nocturnal dyspnea, Rheumatic Fever, Syncope Endocrine: Reports: As per HPI. Denies: Fatigue, Heat or cold intolerance, Polydipsia, Polyuria Gastrointestinal: Reports: As per HPI. Denies: Abdominal pain, Constipation, Diarrhea, Hematemesis, Hematochezia, Melena, Nausea, Vomiting Genitourinary: Reports: As per HPI. Denies: Abnormal menses, Discharge, Dyspareunia, Dysuria, Frequency, Hematuria, Incontinence, Retention, Urgency Musculoskeletal: Reports: As per HPI. Denies: Arthralgia, Back pain, Gout, Joint swelling, Myalgia, Neck pain Skin: Reports: As per HPI. Denies: Bruising, Change in color, Change in hair/ nails, Lesions, Pruritus, Rash Neurological: Reports: As per HPI. Denies: Abnormal gait, Confusion, Headache, Numbness, Paresthesias, Seizure, Tingling, Tremors, Vertigo, Weakness Psychiatric: Reports: As per HPI. Denies: Anxiety, Auditory hallucinations, Depression, Homicidal thoughts, Suicidal thoughts, Visual hallucinations Hematological/Lymphatic: Reports: As per HPI. Denies: Anemia, Blood Clots, Easy bleeding, Easy bruising, Swollen glands Past Medical History - SOCIAL HISTORY Smoking Status: Current every day smoker - RESPIRATORY Hx Respiratory Disorders: Yes Hx Bronchitis: Yes Hx Pneumonia: Yes - CARDIOVASCULAR Hx Cardio Disorders: Yes Hx Abnormal EKG: Yes (atrial tachy) - NEURO Hx Neuro Disorders: Yes Hx Headaches: Yes Hx Seizures: Yes (last one 2012) - GI Hx GI Disorders: Yes Hx Abdominal Pain: Yes Hx Hiatal Hernia: Yes Hx Nausea/Vomiting: Yes Hx Wt Loss/Wt Gain: Yes (25 lb over 2 wks 2015) - Hx Genitourinary Disorders: Yes Hx Kidney Stones: Yes Hx UTI: Yes - ENDOCRINE Hx Endocrine Disorders: No Hx Diabetes: No Hx Thyroid Disease: No - MUSCULOSKELETAL Hx Musculoskeletal Disorders: Yes Comment:: osteoarthritis; ankylosing spondylitis - PSYCH Hx Psych Problems: Yes Hx Anxiety: Yes Hx Depression: Yes Comment:: ECT therapy - HEMATOLOGY/ONCOLOGY Hx Hematology/Oncology Disorders: No Family Medical History Any Significant Family History?: Yes Family Hx Comment (NOT TO BE USED IN PLACE OF ITEMS BELOW): Parkinson's- grandparent , Mental illness with father, Hx Cancer: Grandparents Hx Diabetes: Grandparents Hx Heart Disease: Grandparents Physical Exam - General General Appearance: Alert, Oriented x3, Cooperative, Mild distress - Head Head exam: Normal inspection - Eye Eye exam: Normal appearance, PERRL, EOMI Pupils: Normal accommodation - ENT ENT exam: Normal exam, Mucous membranes moist, Normal external ear exam, Normal orophraynx Ear exam: Normal external inspection. negative: External canal tenderness Nasal Exam: Normal inspection. negative: Discharge, Sinus tenderness Mouth exam: Normal external inspection, Tongue normal Teeth exam: Normal inspection. negative: Dental caries Throat exam: Normal inspection. negative: Tonsillar erythema, Tonsillar exudate - Neck Neck exam: Normal inspection, Full ROM. negative: Tenderness - Respiratory Respiratory exam: Normal lung sounds bilaterally. negative: Respiratory distress - Cardiovascular Cardiovascular Exam: Regular rate, Normal rhythm, Normal heart sounds - GI/Abdominal GI/Abdominal exam: Soft, Normal bowel sounds. negative: Tenderness - Rectal Rectal exam: Deferred - exam: Deferred - Extremities Extremities exam: Normal inspection, Full ROM, Normal capillary refill. negative: Tenderness - Back Back exam: Reports: Normal inspection, Full ROM. Denies: Muscle spasm, Rash noted, Tenderness - Neurological Neurological exam: Alert, CN II-XII intact, Normal gait, Oriented X3 - Psychiatric Psychiatric exam: Normal affect, Normal mood - Skin Skin exam: Dry, Intact, Normal color, Warm Course Vital Signs 02/08/17 20:02 Temperature 98.6 F Pulse Rate [ 107 H Pulse Ox Probe] Respiratory 16 Rate Blood Pressure 135/84 [Left Arm] Pulse Ox 98 - Reevaluation(s) Reevaluation #1: 02/08/17 22:24 pt is unable to have contrast so transfer is being arranged. Medical Decision Making - Lab Data Result diagrams: 02/08/17 20:52 02/08/17 20:52 Lab Results 02/08/17 02/08/17 02/08/17 Range/Units 20:52 20:52 20:52 WBC 8.8 (4.2-12.2) K/uL RBC 4.56 (3.80-5.40) M/uL Hgb 13.5 (11.6-16.0) gm/dl Hct 39.9 (35.0-47.0) % MCV 87.5 (81-97) fl MCH 29.6 (27-33) pg MCHC 33.8 (32-36) g/dl RDW 13.6 (11.5-14.5) % Plt Count 383 (130-400) K/uL MPV 10.2 (7.4-10.4) fl Gran % 49.8 (47-80) % Lymphocytes % 39.5 (16-45) % Monocytes % 5.9 (0-9) % Eosinophils % 4.2 (0-6) % Basophils % 0.6 (0-6) % D-Dimer 0.86 H (0-0.59) mg/L FEU Sodium 139 (136-145) mmol/L Potassium 4.0 (3.5-5.1) mmol/L Chloride 106 (98-107) mmol/L Carbon Dioxide 25.8 (22-30) mmol/L Anion Gap 7.2 (7-16) BUN 13 (7-17) mg/dL Creatinine 1.0 (0.52-1.04) mg/dL Estimated GFR > 60 ml/min Random Glucose 110 (70-110) mg/dL Calcium 8.9 (8.5-10.1) mg/dL Total Bilirubin 0.60 (0.2-1.3) mg/dL AST 30 (14-36) U/L ALT 49 (9-52) U/L Alkaline Phosphatase 154 H (38-126) U/L CK-MB (CK-2) 0.2 (0-6) ug/L Troponin I < 0.012 (0.00-0.034) ng/mL Total Protein 7.1 (6.3-8.2) gm/dL Albumin 4.0 (3.5-5.0) gm/dL Globulin 3.1 (1.4-4.8) gm/dL Albumin/Globulin Ratio 1.3 (1.1-1.8) Disposition Disposition: Transfer Clinical Impression: Chest pain Qualifiers: Chest pain type: other chest pain Qualified Code(s): R07.89 - Other chest pain ; R07.8 - Other chest pain Disposition: Acute Care Hospital Transfer Transfer To: [facility] Reason For Transfer: needs vq Accepting Physician: dr [email or web address] Time Discussed w/Accepting Physician: 22:32 Forms: Patient Portal Access
== END 2017-02-08 22:50 | disposition short-term general hospital (02) ==
LOC: ER 19:54
DX: R07.89 Other chest pain (principal); R06.02 Shortness of breath; F17.200 Nicotine dependence, unspecified, uncomplicated
CPT/HCPCS: 80053; 82553; 84484; 85025; 85379; 93005; 93010; 99285

== ENCOUNTER 2017-03-06 20:48 | Emergency (ER) | payer SELFPAY ==
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
[2017-03-06] MEDS ORDERED: NAPROXEN 250 MG TABLET PO ONE (21:51)
[2017-03-06] MEDS ORDERED: ACETAMINOPHEN 500 MG TABLET PO ONE (21:53)
== END 2017-03-06 22:15 | disposition home or self-care (01) ==
LOC: ER 20:48
DX: S80.02XA Contusion of left knee, initial encounter (principal); V40.5XXA Car driver injured in collision with pedestrian or animal in traffic accident, initial encounter; Y92.410 Unspecified street and highway as the place of occurrence of the external cause
CPT/HCPCS: 99283

== ENCOUNTER 2017-03-19 16:33 | Emergency (ER) | payer MEDICARE ==
[2017-03-19] MEDS ORDERED: METOCLOPRAMIDE HCL 10 MG/2 ML VIAL IVP ONE (17:01)
[2017-03-19] MEDS ORDERED: DIPHENHYDRAMINE HCL IV 50 MG/ML VIAL IVP ONE (17:01)
--- NOTE | 2017-03-19 17:07 | Emergency Department Record ---
History of Present Illness - General Chief Complaint: Headache Migraine Stated Complaint: HEADACHE Time Seen by Provider: 03/19/17 16:49 Source: Patient Mode of Arrival: Ambulatory Limitations: No limitations - History of Present Illness Initial Comments: 36 yo female presents to ED with a CC of worsening headache symptoms since recent admission and subsequent discharge from [facility] 5 days ago. Patient reports that she underwent LP x 2 while at [facility], was diagnosed with Viral meningitis. Patient was discharged home on Pollock 7.5 mg for her pain symptoms, but reports that her pain and vomiting symptoms have worsened following discharge. Patient denies fevers or chills. Patient does see a neurologist through [facility] and has an appointment scheduled for 04/14 for her recurrent headache symptoms. MD Complaint: Headache Onset/Timin -: Days(s) Onset Description: Gradual Location: Diffuse, Occipital Severity: Moderate Severity scale (1-10): 8 Quality: Full, Pulsatile Consistency: Constant Improves With: Nothing Worsens With: None Treatments Prior to Arrival: None Treatment Prior to Arrival Comment:: 2 norco - Related Data Home Medications Medication Instructions Recorded Confirmed Last Taken Duloxetine HCl [Cymbalta] 60 mg PO DAILY 07/22/14 03/19/17 1 Day Ago ~03/18/17 Risperidone [Risperdal M-Tab] 2 mg PO QPM 07/13/16 03/19/17 1 Day Ago ~03/18/17 Pantoprazole Sodium [Protonix] 40 mg PO BID tab. 09/07/16 03/19/17 1 Day Ago ~03/18/17 Bupropion HCl [Wellbutrin Xl] 150 mg PO DAILY tab 11/04/16 03/19/17 1 Day Ago ~03/18/17 Clorazepate Dipotassium [Tranxene 7.5 mg PO TID tab 11/04/16 03/19/17 1 Day Ago T-Tab] ~03/18/17 Hydrocodone/Acetaminophen [Pollock 1 tab PO Q6H PRN 03/19/17 03/19/17 1 Day Ago 7.5mg/325mg] ~03/18/17 Risperidone [Risperdal M-Tab] 1 mg PO QAM 03/19/17 03/19/17 1 Day Ago ~03/18/17 Previous Rx's Medication Instructions Recorded Prochlorperazine Maleate 10 mg PO Q6H PRN #120 tablet 11/24/16 [Compazine] Promethazine HCl [Phenergan] 25 mg RC Q6H PRN #30 supp.rect 11/24/16 Allergies Allergy/AdvReac Type Severity Reaction Status Date / Time Iodinated Contrast Media - Allergy Intermediate ANAPHYLAXIS Verified 03/19/17 16 :47 Oral and ketorolac tromethamine Allergy Intermediate ALTERED Verified 03/19/17 16:47 [From Toradol] MENTAL STATUS lurasidone HCl [From Latuda] Allergy Intermediate RASH Verified 03/19/17 16:47 Penicillins Allergy Intermediate RASH Verified 03/19/17 16:47 shellfish derived Allergy Intermediate VOMITING Verified 03/19/17 16:47 tramadol HCl [From Ultram] Allergy Intermediate BEHAVIORAL Verified 03/19/17 16: 47 CHANGES ciprofloxacin [From Cipro] AdvReac Intermediate VOMITING Verified 03/19/17 16:47 ciprofloxacin HCl AdvReac Intermediate VOMITING Verified 03/19/17 16:47 [From Cipro] erythromycin base AdvReac Intermediate ABDOMINAL Verified 03/19/17 16:47 [Erythromycin Base] PAIN haloperidol [From Haldol] AdvReac restless, Verified 03/19/17 16:47 anxious haloperidol lactate AdvReac restless, Verified 03/19/17 16:47 [From Haldol] anxious metoclopramide HCl AdvReac VOMITING Verified 03/19/17 16:47 [From Reglan] sumatriptan [From Imitrex] AdvReac ANAPHYLAXIS Verified 03/19/17 16:47 sumatriptan succinate AdvReac ANAPHYLAXIS Verified 03/19/17 16:47 [From Imitrex] Travel Screening - Travel/Exposure Within Last 30 Days Have you traveled within the last 30 days?: No - Travel/Exposure Within Last Year Have you traveled outside the [place] in the last year?: No - Additonal Travel Details Have you been exposed to anyone with a communicable illness?: No - Travel Symptoms Symptom Screening: None Review of Systems Constitutional: Denies: Chills, Fever, Malaise, Night sweats Eyes: Denies: Eye discharge, Eye pain ENT: Denies: Congestion, Ear pain, Epistaxis Respiratory: Denies: Cough, Dyspnea Cardiovascular: Denies: Chest pain, Dyspnea on exertion Endocrine: Denies: Fatigue, Heat or cold intolerance Gastrointestinal: Reports: Nausea, Vomiting. Denies: Abdominal pain Genitourinary: Denies: Dysuria, Frequency, Hematuria, Incontinence Musculoskeletal: Denies: Arthralgia, Back pain, Gout, Joint swelling Skin: Denies: Bruising, Change in color Neurological: Reports: Headache. Denies: Abnormal gait, Confusion, Seizure Psychiatric: Denies: Anxiety Hematological/Lymphatic: Denies: Anemia, Blood Clots Past Medical History - SOCIAL HISTORY Smoking Status: Current every day smoker - RESPIRATORY Hx Respiratory Disorders: Yes Hx Bronchitis: Yes Hx Pneumonia: Yes - CARDIOVASCULAR Hx Cardio Disorders: Yes Hx Abnormal EKG: Yes (atrial tachy) - NEURO Hx Neuro Disorders: Yes Hx Headaches: Yes Hx Seizures: Yes (last one 2012) - GI Hx GI Disorders: Yes Hx Abdominal Pain: Yes Hx Hiatal Hernia: Yes Hx Nausea/Vomiting: Yes Hx Wt Loss/Wt Gain: Yes (25 lb over 2 wks 2015) - Hx Genitourinary Disorders: Yes Hx Kidney Stones: Yes Hx UTI: Yes - ENDOCRINE Hx Endocrine Disorders: No Hx Diabetes: No Hx Thyroid Disease: No - MUSCULOSKELETAL Hx Musculoskeletal Disorders: Yes Comment:: osteoarthritis; ankylosing spondylitis - PSYCH Hx Psych Problems: Yes Hx Anxiety: Yes Hx Depression: Yes Comment:: ECT therapy - HEMATOLOGY/ONCOLOGY Hx Hematology/Oncology Disorders: No Family Medical History Any Significant Family History?: Yes Family Hx Comment (NOT TO BE USED IN PLACE OF ITEMS BELOW): Parkinson's- grandparent , Mental illness with father, Hx Cancer: Grandparents Hx Diabetes: Grandparents Hx Heart Disease: Grandparents Physical Exam - General General Appearance: Alert, Oriented x3, Cooperative, Mild distress Limitations: No limitations - Head Head exam: Atraumatic, Normocephalic, Normal inspection Head exam detail: negative: Abrasion, Contusion, Soto's sign, General tenderness, Hematoma, Laceration - Eye Eye exam: Normal appearance. negative: Conjunctival injection, Periorbital swelling, Periorbital tenderness, Scleral icterus - ENT Ear exam: negative: Auricular hematoma, Auricular trauma Nasal Exam: negative: Active bleeding, Discharge, Dried blood, Foreign body Mouth exam: negative: Drooling, Laceration, Muffled voice, Tongue elevation - Neck Neck exam: Normal inspection. negative: Meningismus, Tenderness - Respiratory Respiratory exam: Normal lung sounds bilaterally. negative: Rales, Respiratory distress, Rhonchi, Stridor, Wheezes - Cardiovascular Cardiovascular Exam: Regular rate, Normal rhythm, Normal heart sounds - GI/Abdominal GI/Abdominal exam: Soft. negative: Rebound, Rigid, Tenderness - Rectal Rectal exam: Deferred - exam: Deferred - Extremities Extremities exam: Normal inspection. negative: Pedal edema, Tenderness - Back Back exam: Denies: CVA tenderness (R), CVA tenderness (L) - Neurological Neurological exam: Alert, Normal gait, Oriented X3 - Psychiatric Psychiatric exam: Normal affect, Normal mood - Skin Skin exam: Normal color. negative: Abrasion Type of lesion: negative: abrasion Course Vital Signs 03/19/17 16:38 Temperature 98.6 F Pulse Rate 102 H Respiratory 18 Rate Blood Pressure 132/83 Pulse Ox 96 - Reevaluation(s) Reevaluation #1: 03/19/17 17:08 Initial labs and migraine headache therapy ordered for the patient. Will obtain records from recent discharge and imaging studies from recent hospitalization 1 week ago. Reevaluation #2: 03/19/17 17:17 MRI Brain 02/26/17 ([facility]) No acute process. records reviewed from [facility], patient has undergone 9 CT imaging studies this year alone. Awaiting discharge summary from [facility]. Reevaluation #3: 03/19/17 17:41 Case was discussed with Dr. Miller (, recently admitted/discharged the patient ) and Dr. Chi ([facility]), recent records reviewed including negative MRI of the Brain/Cervical Spnine/Thoracic/Lumbar/Sacral Spine 03/13/17 (all negative as well). Patient's LP reviewed from 03/12/17, 0 WBC's present. Patient has no new neurological findings on examination, and Dr. Chi has no further recommendations for treatment other than possible outpatient pain service consultation for her chronic headache symptoms. Will re-evaluate the patient follow laboratory study review and headache therapy. Reevaluation #4: 03/19/17 18:01 Presentation was discussed with Dr. Newby as well, agrees with plan for migraine therapy and follow-up Wednesday as scheduled. Reevaluation #5: 03/19/17 18:34 Patient was updated on all conversations with Dr. Newby, Dr. Miller, and Dr. Alon. Decadron given for her continued pain symptoms. Laboratory studies are pending. 03/19/17 18:40 Labs reviewed and are grossly unremarkable for an acute process. \03/19/17 18:56 Patient reassessed and is resting comfortably. Patient appears stable for discharge at this time. Medical Decision Making - Lab Data Result diagrams: 03/19/17 18:20 03/19/17 18:20 Disposition Disposition: Discharge Clinical Impression: Headache Qualifiers: Headache type: unspecified Headache chronicity pattern: acute headache Intractability: intractable Qualified Code(s): R51 - Headache Disposition: Home, Self-Care Condition: (2) Stable Instructions: Acute Headache (ED) Additional Instructions: Return to ED if your symptoms worsen or if you have any concerns. Follow-up with Dr. Newby on Wednesday as scheduled. Follow-up with Dr. Serra ([facility]) 04/14 as scheduled as well. Forms: Patient Portal Access Time of Disposition: 18:58
[2017-03-19] MEDS ORDERED: 0.9 % SODIUM CHLORIDE 1000ML 1,000 ML IV SCH (17:15)
[2017-03-19 18:23] LABS: BASO % 0.4 % (0-6); EOS % 2.5 % (0-6); GRAN % 58.3 % (47-80); HEMATOCRIT 39.7 % (35.0-47.0); HEMOGLOBIN 12.7 gm/dl (11.6-16.0); LYMPH % 32.9 % (16-45); MEAN CORPUSCULAR HEMOGLOBIN 28.2 pg (27-33); MEAN PLATELET VOLUME 9.7 fl (7.4-10.4); MONO % 5.9 % (0-9); PLATELET COUNT 340 K/uL (130-400); RED BLOOD COUNT 4.51 M/uL (3.80-5.40); RED CELL DISTRIBUTION WIDTH 14.1 % (11.5-14.5); WHITE BLOOD COUNT W/O DIFF 9.2 K/uL (4.2-12.2)
[2017-03-19] MEDS ORDERED: DEXAMETHASONE SOD PHOSPHATE 10MG/ML VIAL IVP ONE (18:28)
[2017-03-19 18:35] LABS: ALB/GLOB RATIO 1.3 (1.1-1.8); ALBUMIN 3.9 gm/dL (3.5-5.0); ALKALINE PHOSPHATASE 120 U/L (38-126); ALT/SGPT 35 U/L (9-52); ANION GAP 10.9 (7-16); AST/SGOT 18 U/L (14-36); BILIRUBIN,TOTAL 0.47 mg/dL (0.2-1.3); BLOOD UREA NITROGEN 12 mg/dL (7-17); CARBON DIOXIDE 24.1 mmol/L (22-30); CREATININE 0.9 mg/dL (0.52-1.04); EST GLOMERULAR FILTRATION RATE > 60 ml/min; GLUCOSE,RANDOM 121 mg/dL (70-110); TOTAL PROTEIN 6.8 gm/dL (6.3-8.2)
[2017-03-19] MEDS ORDERED: HEPARIN SODIUM FLUSH 100 UNITS/ML SYR 5ML IVP ONE (19:18)
== END 2017-03-19 19:23 | disposition home or self-care (01) ==
LOC: ER 16:33
DX: R51 Headache (principal); R11.11 Vomiting without nausea
CPT/HCPCS: 99284 ×2; 96374; 96375; 96361; 85025; 80053; J1642; J1100; J1200; J2765; J7030

== ENCOUNTER 2017-12-10 17:49 | Emergency (ER) | payer MEDICARE ==
[2017-12-10] MEDS ORDERED: DIAZEPAM 5 MG TABLET PO ONE (18:16)
--- NOTE | 2017-12-10 18:20 | Emergency Department Record ---
History of Present Illness - General Chief Complaint: Fall Injury Stated Complaint: FALL INJURY, NECK AND HEAD PAIN Time Seen by Provider: 12/10/17 18:00 Source: Patient, Family Mode of Arrival: Ambulatory Limitations: No limitations - History of Present Illness Initial Comments: 37 yo male presents with neck pain. She fell at 3pm on a couple of steps. She initial mildly bumper her head and neck. She went to a massage therapist afterward. After the massage the neck pain began to hurt more. The neck pain radiates up to the head. No extremity injuries. No LOC. No blood thinners. MD Complaint: Fall Onset/Timin -: Hour(s) Fall From: Down stairs (#) When Fall Occurred: 1-3 hours [employer] Fall Witnessed: No Place Fall Occurred: Home Loss of Consciousness: None Prolonged Down Time?: No Symptoms Prior to Fall: None Location: Head Severity: Moderate Severity scale (1-10): 10 Quality: Aching Associated Symptoms: Lightheaded - Miguel Coma Scale Eye Response: (4) Open spontaneously Motor Response: (6) Obeys commands Verbal Response: (5) Oriented Miguel Total: 15 - Related Data Home Medications Medication Instructions Recorded Confirmed Last Taken Lorazepam [Ativan] 1 mg PO TID PRN 12/10/17 12/10/17 Unknown Magnesium 200 mg PO DAILY 12/10/17 12/10/17 Unknown Ondansetron HCl [Zofran] 8 mg PO ASDIR PRN 12/10/17 12/10/17 Unknown Previous Rx's Medication Instructions Recorded Promethazine HCl [Phenergan] 25 mg RC Q6H PRN #30 supp.rect 11/24/16 Diazepam [Valium] 10 mg PO TID #12 tab 12/10/17 Ondansetron [Zofran Odt] 4 mg PO Q8H #15 tab.rapdis 12/10/17 Allergies Allergy/AdvReac Type Severity Reaction Status Date / Time Iodinated Contrast- Oral and Allergy Intermediate ANAPHYLAXIS Verified 03/19/17 16:47 IV Dye [Iodinated Contrast Media - Oral and] ketorolac tromethamine Allergy Intermediate ALTERED Verified 03/19/17 16:47 [From Toradol] MENTAL STATUS lurasidone HCl [From Latuda] Allergy Intermediate RASH Verified 03/19/17 16:47 Penicillins Allergy Intermediate RASH Verified 03/19/17 16:47 shellfish derived Allergy Intermediate VOMITING Verified 03/19/17 16:47 tramadol HCl [From Ultram] Allergy Intermediate BEHAVIORAL Verified 03/19/17 16: 47 CHANGES ciprofloxacin [From Cipro] AdvReac Intermediate VOMITING Verified 03/19/17 16:47 ciprofloxacin HCl AdvReac Intermediate VOMITING Verified 03/19/17 16:47 [From Cipro] erythromycin base AdvReac Intermediate ABDOMINAL Verified 03/19/17 16:47 [Erythromycin Base] PAIN haloperidol [From Haldol] AdvReac restless, Verified 03/19/17 16:47 anxious haloperidol lactate AdvReac restless, Verified 03/19/17 16:47 [From Haldol] anxious metoclopramide HCl AdvReac VOMITING Verified 03/19/17 16:47 [From Reglan] sumatriptan [From Imitrex] AdvReac ANAPHYLAXIS Verified 03/19/17 16:47 sumatriptan succinate AdvReac ANAPHYLAXIS Verified 03/19/17 16:47 [From Imitrex] Travel Screening - Travel/Exposure Within Last 30 Days Have you traveled within the last 30 days?: No - Travel/Exposure Within Last Year Have you traveled outside the [place] in the last year?: No - Additonal Travel Details Have you been exposed to anyone with a communicable illness?: No - Travel Symptoms Symptom Screening: None Review of Systems Constitutional: Denies: Chills, Fever, Malaise, Weakness Eyes: Denies: Eye discharge ENT: Denies: Congestion, Throat pain Respiratory: Denies: Cough Cardiovascular: Denies: Chest pain, Syncope Endocrine: Denies: Fatigue, Polydipsia, Polyuria Gastrointestinal: Reports: Nausea. Denies: Abdominal pain, Diarrhea, Vomiting Genitourinary: Denies: Dysuria, Urgency Skin: Denies: Bruising, Change in color, Rash Neurological: Reports: Headache. Denies: Abnormal gait, Confusion, Numbness, Seizure, Tingling, Tremors, Vertigo, Weakness Psychiatric: Denies: Anxiety Hematological/Lymphatic: Denies: Blood Clots, Easy bleeding, Easy bruising, Swollen glands Past Medical History - SOCIAL HISTORY Smoking Status: Current every day smoker Alcohol Use: None Drug Use: None - RESPIRATORY Hx Respiratory Disorders: Yes Hx Bronchitis: Yes Hx Pneumonia: Yes - CARDIOVASCULAR Hx Cardio Disorders: Yes Hx Abnormal EKG: Yes (atrial tachy) - NEURO Hx Neuro Disorders: Yes Hx Headaches: Yes Hx Seizures: Yes (last one 2012) - GI Hx GI Disorders: Yes Hx Abdominal Pain: Yes Hx Hiatal Hernia: Yes Hx Nausea/Vomiting: Yes Hx Wt Loss/Wt Gain: Yes (25 lb over 2 wks 2015) - Hx Genitourinary Disorders: Yes Hx Kidney Stones: Yes Hx UTI: Yes - ENDOCRINE Hx Endocrine Disorders: No Hx Diabetes: No Hx Thyroid Disease: No - MUSCULOSKELETAL Hx Musculoskeletal Disorders: Yes Comment:: osteoarthritis; ankylosing spondylitis - PSYCH Hx Psych Problems: Yes Hx Anxiety: Yes Hx Depression: Yes Comment:: ECT therapy - HEMATOLOGY/ONCOLOGY Hx Hematology/Oncology Disorders: No Family Medical History Any Significant Family History?: Yes Family Hx Comment (NOT TO BE USED IN PLACE OF ITEMS BELOW): Parkinson's- grandparent , Mental illness with father, Hx Cancer: Grandparents Hx Diabetes: Grandparents Hx Heart Disease: Grandparents Physical Exam - General General Appearance: Alert, Oriented x3, Cooperative, No acute distress, Other ( No confusion, alert, appropriate) - Head Head exam: Atraumatic, Normocephalic, Normal inspection Head exam detail: negative: Abrasion, Contusion, Hematoma, Laceration - Eye Eye exam: Normal appearance, PERRL, EOMI. negative: Conjunctival injection, Nystagmus, Periorbital swelling, Periorbital tenderness, Scleral icterus - ENT ENT exam: Normal exam, Mucous membranes moist, Normal orophraynx. negative: Mucous membranes dry Ear exam: Normal external inspection. negative: External canal tenderness Nasal Exam: Normal inspection. negative: Discharge, Sinus tenderness Mouth exam: Normal external inspection, Tongue normal Teeth exam: Normal inspection. negative: Dental caries Throat exam: Normal inspection. negative: Tonsillar erythema, Tonsillar exudate - Neck Neck exam: Normal inspection, Full ROM, Lymphadenopathy, Tenderness, Other ( Tender essentially all over the entire neck, normal aligment, no step off). negative: Meningismus, Thyromegaly - Respiratory Respiratory exam: Normal lung sounds bilaterally. negative: Respiratory distress - Cardiovascular Cardiovascular Exam: Regular rate, Normal rhythm, Normal heart sounds Peripheral Pulses: 2+: Radial (R), Radial (L) - GI/Abdominal GI/Abdominal exam: Soft. negative: Guarding, Rebound, Rigid, Tenderness - Rectal Rectal exam: Deferred - exam: Deferred Course Vital Signs 12/10/17 18:03 Temperature 99.6 F Pulse Rate 98 H Respiratory 20 Rate Blood Pressure 142/89 Pulse Ox 97 - Reevaluation(s) Reevaluation #1: The patient was seen and examined. No LOC, GCS 15, No visible or palpable head trauma, She has isolated neck pain after the massage No neurologic findings on examination 12/10/17 19:[address] was read and straightening of cervical lordosis otherwise negative. Disposition Disposition: Discharge Clinical Impression: Cervical strain, acute Disposition: Home, Self-Care Condition: (1) Good Instructions: Cervical Strain (ED) Additional Instructions: Call your doctor for close follow up Rest this weekend Be seen if worse, weak, any new symptoms or concerns No driving. Prescriptions: Diazepam [Valium] 10 mg PO TID #12 tab Ondansetron [Zofran Odt] 4 mg PO Q8H #15 tab.rapdis Forms: Patient Portal Access Time of Disposition: 19:06 Quality - Quality Measures Quality Measures: N/A - Blood Pressure Screening Does Patient Have Any of the Following: No Blood Pressure Classification: Pre-Hypertensive BP Reading Systolic Measurement: 142 Diastolic Measurement: 89 Screening for High Blood Pressure: < Pre-Hypertensive BP, F/U Documented > [ G8950] Pre-Hypertensive Follow-up Interventions: Referral to alternative/primary care provider.
[2017-12-10] MEDS ORDERED: ONDANSETRON 4 MG ODT TABLET SL ONE (18:47)
[2017-12-10] MEDS ORDERED: HYDROCODONE/APAP 7.5/325MG TABLET PO ONE (18:55)
[2017-12-10] MEDS ORDERED: ORPHENADRINE CITRATE 60MG/2ML VIAL IM ONE (19:09)
--- NOTE | 2017-12-11 10:56 | CT SCAN REPORT ---
EXAM: CT SCAN CERVICAL SPINE WO CONTRAST HISTORY: FELL TODAY. POSTERIOR NECK PAIN. TECHNIQUE: Standard CT imaging of the cervical spine was performed in the axial plane without contrast. COMPARISON: Previous cervical spine x-rays dated 02/05/2017. ENCOUNTER: Initial. FINDINGS: There is straightening of the cervical lordosis, which appears similar to the previous x-rays. The craniocervical and cervicothoracic junctions are normal. There is no acute fracture, subluxation, or prevertebral soft tissue swelling. There is mild disc space narrowing of the C5-6 level. The remaining disc spaces and vertebral body heights are maintained. There is no central canal stenosis or significant neural foraminal narrowing. There are bilateral thyroid nodules. The largest is located on the left and measures 2 x 1.7 cm. The remaining neck soft tissues are normal. The lung apices are clear. IMPRESSION: 1. STRAIGHTENING OF THE CERVICAL LORDOSIS. 2. NO ACUTE CERVICAL SPINE PATHOLOGY. 3. A 2 CM LEFT THYROID NODULE. JOB NUMBER: [id number] MTDD
== END 2017-12-10 19:34 | disposition home or self-care (01) ==
LOC: ER 17:49
DX: S16.1XXA Strain of muscle, fascia and tendon at neck level, initial encounter (principal); W10.9XXA Fall (on) (from) unspecified stairs and steps, initial encounter; Y92.009 Unspecified place in unspecified non-institutional (private) residence as the place of occurrence of the external cause
CPT/HCPCS: 99283 ×2; 72125; J3490; J2360

== ENCOUNTER 2019-12-05 18:04 | Emergency (ER) | payer MEDICARE ==
[2019-12-05 18:39] LABS: URINE APPEARANCE CLEAR; URINE BILIRUBIN NEGATIVE (NEGATIVE); URINE BLOOD LARGE (NEGATIVE); URINE COLOR YELLOW; URINE GLUCOSE (UA) NEGATIVE (NEGATIVE); URINE KETONE NEGATIVE (NEGATIVE); URINE LEUKOCYTE ESTERASE TRACE (NEGATIVE); URINE NITRITE NEGATIVE (NEGATIVE); URINE PROTEIN NEGATIVE (NEGATIVE); URINE UROBILINOGEN 0.2 E.U./dL (0.20 - 1.00)
[2019-12-05 18:48] LABS: HCG,QUALITATIVE URINE NEGATIVE (NEGATIVE); URINE RBC 21 - 35 (NONE SEEN); URINE WBC 0 - 2 (0-2/hpf)
[2019-12-05] MEDS ORDERED: ONDANSETRON HCL IV 4 MG/2 ML VIAL IVP ONE ×2 (18:52→20:28)
--- NOTE | 2019-12-05 19:14 | Emergency Department Record ---
History of Present Illness - General Chief Complaint: Abdominal Pain Stated Complaint: PAIN LOWER R SIDE Time Seen by Provider: 12/05/19 18:10 Source: Patient Mode of Arrival: Ambulatory Limitations: No limitations - History of Present Illness Initial Comments: pt was dxd w a hemorrhagic r ovarian cyst 2wks ago at [facility]. 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 she also has been having intermittent bleeding. she feels lightheaded MD Complaint: Abdominal pain Onset/Timin -: Week(s) Location: RLQ Severity: Moderate Severity scale (1-10): 8 Quality: Sharp Consistency: Constant Improves With: Nothing Worsens With: Nothing Associated Symptoms: Nausea - Related Data LMP (females 10-50): Current Patient : No Home Medications Medication Instructions Recorded Confirmed Last Taken Clonazepam [Klonopin] 1 mg PO Q12H 12/05/19 12/05/19 12/05/19 Fluoxetine HCl [Prozac] 40 mg PO DAILY 12/05/19 12/05/19 12/05/19 Rivaroxaban [Xarelto] 20 mg PO DAILY 12/05/19 12/05/19 12/05/19 Trazodone HCl [Desyrel] 50 mg PO QHS 12/05/19 12/05/19 12/04/19 Previous Rx's Medication Instructions Recorded Promethazine HCl [Phenergan] 25 mg RC Q6H PRN #30 supp.rect 11/24/16 Ondansetron [Zofran Odt] 4 mg PO Q8H #15 tab.rapdis 12/10/17 Allergies Allergy/AdvReac Type Severity Reaction Status Date / Time lurasidone HCl [From Latuda] Allergy Intermediate RASH Verified 12/05/19 18:14 Penicillins Allergy Intermediate RASH Verified 12/05/19 18:14 shellfish derived Allergy Intermediate VOMITING Verified 12/05/19 18:14 tramadol HCl [From Ultram] Allergy Intermediate BEHAVIORAL Verified 12/05/19 18:14 CHANGES ciprofloxacin [From Cipro] AdvReac Intermediate VOMITING Verified 12/05/19 18:14 ciprofloxacin HCl AdvReac Intermediate VOMITING Verified 12/05/19 18:14 [From Cipro] erythromycin base AdvReac Intermediate ABDOMINAL Verified 12/05/19 18:14 [Erythromycin Base] PAIN sumatriptan [From Imitrex] AdvReac ANAPHYLAXIS Verified 12/05/19 18:14 sumatriptan succinate AdvReac ANAPHYLAXIS Verified 12/05/19 18:14 [From Imitrex] Travel Screening - Travel/Exposure Within Last 30 Days Have you traveled within the last 30 days?: No - Travel/Exposure Within Last Year Have you traveled outside the [place] in the last year?: No - Additonal Travel Details Have you been exposed to anyone with a communicable illness?: No Review of Systems Reviewed: No additional complaints except as noted below Constitutional: Reports: As per HPI. Denies: Chills, Fever, Malaise, Night sweats, Weakness, Weight change Eyes: Reports: As per HPI. Denies: Eye discharge, Eye pain, Photophobia, Vision change ENT: Reports: As per HPI. Denies: Congestion, Dental pain, Ear pain, Epistaxis, Hearing loss, Throat pain Respiratory: Reports: As per HPI. Denies: Cough, Dyspnea, Hemoptysis, Stridor, Wheezes Cardiovascular: Reports: As per HPI. Denies: Arrhythmia, Chest pain, Dyspnea on exertion, Edema, Murmurs, Orthopnea, Palpitations, Paroxysmal nocturnal dyspnea, Rheumatic Fever, Syncope Endocrine: Reports: As per HPI. Denies: Fatigue, Heat or cold intolerance, Polydipsia, Polyuria Gastrointestinal: Reports: As per HPI, Abdominal pain. Denies: Constipation, Diarrhea, Hematemesis, Hematochezia, Melena, Nausea, Vomiting Genitourinary: Reports: As per HPI. Denies: Abnormal menses, Discharge, Dyspareunia, Dysuria, Frequency, Hematuria, Incontinence, Retention, Urgency Musculoskeletal: Reports: As per HPI. Denies: Arthralgia, Back pain, Gout, Joint swelling, Myalgia, Neck pain Skin: Reports: As per HPI. Denies: Bruising, Change in color, Change in hair/nails, Lesions, Pruritus, Rash Neurological: Reports: As per HPI. Denies: Abnormal gait, Confusion, Headache, Numbness, Paresthesias, Seizure, Tingling, Tremors, Vertigo, Weakness Psychiatric: Reports: As per HPI. Denies: Anxiety, Auditory hallucinations, Depression, Homicidal thoughts, Suicidal thoughts, Visual hallucinations Hematological/Lymphatic: Reports: As per HPI. Denies: Anemia, Blood Clots, Easy bleeding, Easy bruising, Swollen glands Past Medical History - SOCIAL HISTORY Smoking Status: Current every day smoker Alcohol Use: None Drug Use: None - RESPIRATORY Hx Respiratory Disorders: Yes Hx Bronchitis: Yes Hx Pneumonia: Yes - CARDIOVASCULAR Hx Cardio Disorders: Yes Hx Abnormal EKG: Yes (atrial tachy) - NEURO Hx Neuro Disorders: Yes Hx Headaches: Yes Hx Seizures: Yes (last one 2012) - GI Hx GI Disorders: Yes Hx Abdominal Pain: Yes Hx Hiatal Hernia: Yes Hx Nausea/Vomiting: Yes Hx Wt Loss/Wt Gain: Yes (25 lb over 2 wks 2015) Comment:: gastroporesus - Hx Genitourinary Disorders: Yes Hx Kidney Stones: Yes Hx UTI: Yes - ENDOCRINE Hx Endocrine Disorders: No Hx Diabetes: No Hx Thyroid Disease: No - MUSCULOSKELETAL Hx Musculoskeletal Disorders: Yes Comment:: osteoarthritis; ankylosing spondylitis - PSYCH Hx Psych Problems: Yes Hx Anxiety: Yes Hx Depression: Yes Comment:: ECT therapy - HEMATOLOGY/ONCOLOGY Hx Hematology/Oncology Disorders: No Family Medical History Any Significant Family History?: Yes Family Hx Comment (NOT TO BE USED IN PLACE OF ITEMS BELOW): Parkinson's- grandparent , Mental illness with father, Hx Cancer: Grandparents Hx Diabetes: Grandparents Hx Heart Disease: Grandparents Physical Exam - General General Appearance: Alert, Oriented x3, Cooperative, No acute distress - Head Head exam: Normal inspection - Eye Eye exam: Normal appearance, PERRL, EOMI Pupils: Normal accommodation - ENT ENT exam: Normal exam, Mucous membranes moist, Normal external ear exam, Normal orophraynx Ear exam: Normal external inspection. negative: External canal tenderness Nasal Exam: Normal inspection. negative: Discharge, Sinus tenderness Mouth exam: Normal external inspection, Tongue normal Teeth exam: Normal inspection. negative: Dental caries Throat exam: Normal inspection. negative: Tonsillar erythema, Tonsillar exudate - Neck Neck exam: Normal inspection, Full ROM. negative: Tenderness - Respiratory Respiratory exam: Normal lung sounds bilaterally. negative: Respiratory distress - Cardiovascular Cardiovascular Exam: Regular rate, Normal rhythm, Normal heart sounds - GI/Abdominal GI/Abdominal exam: Soft, Normal bowel sounds, Tenderness - Rectal Rectal exam: Deferred - exam: Deferred - Extremities Extremities exam: Normal inspection, Full ROM, Normal capillary refill. negativ e: Tenderness - Back Back exam: Reports: Normal inspection, Full ROM. Denies: Muscle spasm, Rash noted, Tenderness - Neurological Neurological exam: Alert, CN II-XII intact, Normal gait, Oriented X3 - Psychiatric Psychiatric exam: Normal affect, Normal mood - Skin Skin exam: Dry, Intact, Normal color, Warm Course Vital Signs 12/05/19 18:20 Temperature 98.7 F Pulse Rate 100 H Respiratory 20 Rate Blood Pressure 118/82 Pulse Ox 99 - Reevaluation(s) Reevaluation #1: 12/05/19 21:27 pt us shows cyst is gone but there is a small spot on r ovary that needs f/u. pt was insisting on a abd ct so one was ordered and now she has decided to refuse it Medical Decision Making - Lab Data Result diagrams: 12/05/19 19:55 12/05/19 19:55 Lab Results 12/05/19 Range/Units 18:30 Urine Color Yellow Urine Appearance Clear Urine pH 6.5 (5.0-8.0) Ur Specific [place] 1.010 (1.002-1.030) Urine Protein Negative (NEGATIVE) Urine Glucose (UA) Negative (NEGATIVE) Urine Ketones Negative (NEGATIVE) Urine Blood Large H (NEGATIVE) Urine Nitrite Negative (NEGATIVE) Urine Bilirubin Negative (NEGATIVE) Urine Urobilinogen 0.2 (0.20 - 1.00) E.U./dL Ur Leukocyte Esterase Trace H (NEGATIVE) Urine RBC 21 - 35 (NONE SEEN) Urine WBC 0 - 2 (0-2/hpf) Ur Epithelial Cells 10 - 15 (FEW) Urine HCG, Qual Negative (NEGATIVE) Disposition Disposition: Discharge Clinical Impression: RLQ abdominal pain Disposition: Home, Self-Care Condition: (1) Good Instructions: Abdominal Pain (ED) Additional Instructions: 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 return sooner if worse recheck in 12-24 hours if still having rlq pain Referrals: Kennedi Cabrales D.O. [DOCTOR OF OSTEOPATH] - Forms: Patient Portal Access Quality - Quality Measures Quality Measures: N/A - Blood Pressure Screening Does Patient Have Any of the Following: No Blood Pressure Classification: Pre-Hypertensive BP Reading Systolic Measurement: 118 Diastolic Measurement: 82 Screening for High Blood Pressure: < Pre-Hypertensive BP, F/U Documented > [G8950] Pre-Hypertensive Follow-up Interventions: Follow-up with rescreen every year.
[2019-12-05] MEDS ORDERED: 0.9 % SODIUM CHLORIDE 1,000 ML BAG IV ONE (19:39)
[2019-12-05] MEDS ORDERED: KETOROLAC 30 MG/ML VIAL IVP ONE (19:39)
[2019-12-05 20:03] LABS: HEMATOCRIT 40.7 % (35.0-47.0); MEAN CELL VOLUME 85.7 fl (81-97); MEAN CORPUSCULAR HEMOGLOBIN 27.4 pg (27-33); MEAN CORPUSCULAR HGB CONC 31.9 g/dl (32-36); MEAN PLATELET VOLUME 10.1 fl (7.4-10.4); PLATELET COUNT 277 K/uL (130-400); RED BLOOD COUNT 4.75 M/uL (3.80-5.40); RED CELL DISTRIBUTION WIDTH 14.3 % (11.5-14.5); WHITE BLOOD COUNT W/O DIFF 4.7 K/uL (4.2-12.2)
[2019-12-05 20:16] LABS: BILIRUBIN,TOTAL 0.4 mg/dL (0.2-1.0); CREATININE 1.1 mg/dL (0.5-0.9)
[2019-12-05 20:17] LABS: TOTAL PROTEIN 6.9 g/dL (6.6-8.7)
[2019-12-05 20:22] LABS: ALB/GLOB RATIO 1.5 (1.1-1.8); ALBUMIN 4.1 g/dL (4.0-5.0)
[2019-12-05] MEDS ORDERED: HYDROMORPHONE HCL 2 MG/ML VIAL IVP ONE ×2 (20:55→22:03)
[2019-12-05 20:56] LABS: URINE APPEARANCE CLEAR; URINE BILIRUBIN NEGATIVE (NEGATIVE); URINE BLOOD MODERATE (NEGATIVE); URINE COLOR YELLOW; URINE GLUCOSE (UA) NEGATIVE (NEGATIVE); URINE KETONE 15 mg/dL (NEGATIVE); URINE LEUKOCYTE ESTERASE NEGATIVE (NEGATIVE); URINE NITRITE NEGATIVE (NEGATIVE); URINE PROTEIN NEGATIVE (NEGATIVE); URINE UROBILINOGEN 0.2 E.U./dL (0.20 - 1.00)
[2019-12-05 21:05] LABS: URINE WBC 0 - 2 (0-2/hpf)
[2019-12-05 21:06] LABS: URINE BACTERIA FEW; URINE MUCUS LIGHT
--- NOTE | 2019-12-05 21:10 | ULTRASOUND REPORT ---
EXAMINATION: Complete Transabdominal and Endovaginal Ultrasound of the Pelvis EXAM DATE: 12/05/2019 9:02 PM TECHNIQUE: Endovaginal ultrasound imaging was performed after the transabdominal exam for better res olution. INDICATION: rlq COMPARISON: Report from outside facility dated November 24, 2019 Transabdominal Ultrasound of the Pelvis Findings: 1. Uterus Size: The uterus measures 8.5 x 4.6 x 3.7 cm in dimension (length x AP x width). 2. Endometrium: The endometrium images poorly transabdominally. The visualized endometrium measures 7 mm in thickness. 3. Myometrium: The myometrium images poorly transabdominally. The myometrium is unremarkable. 4. Ovaries: The right ovary measures 3.5 x 1.8 x 2.3 cm in dimension. The left ovary measures 2.1 x 2.9 x 1.3 cm in dimension. 5. Bilateral Adnexa: No adnexal masses or abnormal cysts are demonstrated. 6. Other Findings: None. Transvaginal Ultrasound of the Pelvis Findings: 1. Uterus Size: Normal. 2. Endometrium: The endometrium measures 7 mm in thickness. The endometrium is normal. 3. Myometrium: Normal. 4. Ovaries: The right ovary measures 3.5 x 1.8 x 2.3 cm. Within the right ovary there is a 1.5 x 2.0 x 1.5 cm lesion which appears heterogeneous. This does not appear definitively cystic. The left ovar y measures 2.1 x 2.9 x 1.3 cm. Within the left ovary there is a 1.5 x 1.0 x 2.0 cm mixed echogenicity lesion. This may represent a complex cyst. 5. Other Findings: No free fluid is identified Doppler Imaging: Duplex Doppler ultrasound was performed to assess for an ovarian torsion. Color Dop pler images show symmetric blood flow in the ovaries. Intraovarian spectral venous and arterial wavef orms are symmetrical, unidirectional and have unremarkable uncorrected velocities. Impression: At this time blood flow is identified within the ovaries bilaterally. Previously described 3.0 x 1.6 x 2.3 cm probable hemorrhagic cyst within the right ovary is not ident ified. There is a 1.5 x 2.0 x 1.5 cm heterogeneous region within the right ovary which does not appea r definitively cystic. Differential would include but is not limited to an endometrioma. Short-term f ollow-up to demonstrate stability progression or resolution versus further evaluation with MRI of the pelvis is recommended. 1.5 x 1.0 x 2.0 cm mixed echogenicity lesion within the left ovary not reported on previous exam. Sug gest follow-up to demonstrate stability progression or resolution Dictated by: Donaldo Jensen MD on 12/05/2019 8:08 PM. .
[2019-12-05] MEDS ORDERED: PROMETHAZINE HCL 12.5 MG in 0.9 % SODIUM CHLORIDE 100ML 100 ML IVPB ONE (21:26)
== END 2019-12-05 22:19 | disposition home or self-care (01) ==
LOC: ER 18:04
DX: R10.31 Right lower quadrant pain (principal); R42 Dizziness and giddiness; R11.0 Nausea; F17.210 Nicotine dependence, cigarettes, uncomplicated; N83.9 Noninflammatory disorder of ovary, fallopian tube and broad ligament, unspecified
CPT/HCPCS: 76830; 76856; 80053; 81001; 81025; 85027; 96374; 96375; 96376; 99284; J1885; J2405; J2550; J7030